=== PATIENT | female | born 1965 | race Caucasian/White ===

== ENCOUNTER → 2018-02-20 08:59 | Outpatient (CLI) | payer OTHER, SELFPAY ==
[2018-01-14 11:44] VITALS: BMI 23.9
[2018-02-14 10:02] VITALS: BMI 23.9
--- NOTE | 2018-02-20 09:02 | BI_ITS ---
MAMMOGRAPHY - BILATERAL DIAGNOSTIC REASON FOR EXAM: Female, 52 years old. 1-2 month history of bilateral breast pain. Left arm edema. PERTINENT HISTORY: Non-contributory. History of prior bilateral breast reduction and left axillary surgery. TECHNIQUE: Digital bilateral breast janel (3D mammographic acquisition) in the CC and MLO projections. 2-D mediolateral oblique (MLO) and craniocaudad (CC) views of both breasts were obtained. CAD: Full Field Digital Mammography with Computer Added Detection was performed. COMPARISON: Comparison is made with prior study dated January 09, 2017 and January 16, 2013. FINDINGS: Breast Composition: There are scattered areas of fibroglandular density. There are no dominant masses or suspicious calcifications. Once again, surgical clips are seen in the axillary region of the left breast. Stable architectural distortion secondary to prior breast reduction surgery. Stable tissue clip marker in the upper deep portion of the left breast. No other significant abnormalities are identified. There has been no significant change since the prior study. BI/DIAG MAMM W/CAD, BILAT IMPRESSION: Stable bilateral diagnostic mammogram. One year follow-up recommended. (A) ASSESSMENT CATEGORY: BIRADS Category 2: Benign. A letter regarding these results will be sent to the patient by the facility within 30 days. Approximately 10% of breast cancers are not detected by mammography. A normal mammogram should not delay biopsy of a clinically suspicious abnormality. Electronically Signed: Eulalio Mathew MD at 12:53 EST Tel [phone], Service support ,
--- NOTE | 2018-02-20 09:02 | US_ITS ---
STUDY: ULTRASOUND BREAST - LEFT REASON FOR EXAM: Female, 52 years old. Pain in the left breast. TECHNIQUE: Axial and longitudinal images of the LEFT breast were performed with a high resolution ultrasound transducer. COMPARISON: Comparison is made with prior mammogram done earlier today. FINDINGS: LEFT Breast: The lateral half of the left breast was examined by ultrasound. There is homogeneous fibroglandular tissue. No solid or cystic mass lesion is seen. US/Breast Limited Unilateral IMPRESSION: Unremarkable sonographic examination of the lateral half of the left breast. ASSESSMENT CATEGORY: BIRADS Category 1: Negative. A letter regarding these results will be sent to the patient by the facility within 30 days. Electronically Signed: Eulalio Mathew MD at 12:59 EST Tel [phone], Service support ,
== END ==
PROVIDERS: Family Provider Internal Medicine; PCP Internal Medicine; Visit Provider Nurse Practitioner Women's Health
DX: N64.4 Mastodynia (principal); Z98.890 Other specified postprocedural states
CPT/HCPCS: 76642; 77062; 77063; 77066; G0279

== ENCOUNTER → 2019-06-29 | Outpatient (CLI) | payer BC, OTHER, SELFPAY ==
[2019-06-22 14:44] VITALS: BMI 23.9
--- NOTE | 2019-06-29 09:34 | US_ITS ---
STUDY: ULTRASOUND BREAST - LEFT REASON FOR EXAM: Female, 53 years old. Pain in the left breast. TECHNIQUE: Axial and longitudinal images of the LEFT breast were performed with a high resolution ultrasound transducer. # OF IMAGES: 65 COMPARISON: Comparison is made with prior mammogram done earlier in the day as well as prior sonogram of the left breast dated February 20, 2018. FINDINGS: LEFT Breast: There is an 8 mm x 9 mm x 6 mm benign-appearing lymph node in the left axilla. US/Breast Limited Unilateral IMPRESSION: 8 mm x 9 mm x 6 mm benign appearing lymph node in the left axilla. ASSESSMENT CATEGORY: BIRADS Category 2: Benign. A letter regarding these results will be sent to the patient by the facility within 30 days. Electronically Signed: Eulalio Mathew, at 12:42 EDT , Service support ,
--- NOTE | 2019-06-29 09:34 | BI_ITS ---
MAMMOGRAPHY - BILATERAL DIAGNOSTIC REASON FOR EXAM: Female, 53 years old. Left breast pain and swelling. Remote left axillary excisional breast biopsy. History of bilateral breast reduction surgery. PERTINENT HISTORY: Mother with breast cancer. TECHNIQUE: Digital bilateral breast janel (3D mammographic acquisition) in the CC and MLO projections. 2-D mediolateral oblique (MLO) and craniocaudad (CC) views of both breasts were obtained. CAD: Full Field Digital Mammography with Computer Added Detection was performed. COMPARISON: Comparison is made with prior examination dated February 20, 2018 and January 09, 2017. FINDINGS: Breast Composition: There are scattered areas of fibroglandular density. There are no dominant masses or suspicious calcifications. Surgical clips are seen in the left axillary region. These are stable. Stable benign-appearing bilateral axillary lymph nodes. No other significant abnormalities are identified. There has been no significant change since the prior study. BI/DIAG MAMM W/CAD, BILAT IMPRESSION: Stable bilateral diagnostic mammogram. With the patient''s history of the left breast pain and swelling, correlation with ultrasound is recommended. ASSESSMENT CATEGORY: BIRADS Category 0: Incomplete. Need additional imaging evaluation. A letter regarding these results will be sent to the patient by the facility within 30 days. Approximately 10% of breast cancers are not detected by mammography. A normal mammogram should not delay biopsy of a clinically suspicious abnormality. Electronically Signed: Eulalio Mathew, at 10:57 EDT , Service support ,
== END | disposition home or self-care (01) ==
LOC: OPBI 09:34
PROVIDERS: PCP Internal Medicine; Referring Provider Nurse Practitioner Women's Health; Visit Provider Nurse Practitioner Women's Health
DX: N64.4 Mastodynia (principal)
CPT/HCPCS: 76642; 77062; 77066; G0279

== ENCOUNTER → 2019-07-17 | Outpatient (CLI) | payer BC, OTHER, SELFPAY ==
[2019-07-14 09:52] VITALS: BMI 23.9
[2019-07-17 13:29] LABS: Anion Gap 8 (5-15); BUN 10 mg/dL (7-18); BUN/Creat Ratio 10.5 RATIO (10-20); Calcium,Total 9.4 mg/dL (8.5-10.1); Chloride 107 mmol/L (98-107); Creatinine, Serum 0.95 mg/dL (0.55-1.02); EST Glomerular Filtration Rate 65 mL/min (>60); Est Glom Filt Rate - Afr Amer 79 mL/min (>60); Glucose 124 mg/dL (74-106); Potassium 4.1 mmol/L (3.5-5.1); Sodium Level 140 mmol/L (136-145); Thyroid Stim Hormone (TSH) 2.77 uIU/mL (0.358-3.74)
== END | disposition home or self-care (01) ==
LOC: BIMLAB 10:31
PROVIDERS: PCP Internal Medicine; Referring Provider Internal Medicine; Visit Provider Internal Medicine
DX: E03.9 Hypothyroidism, unspecified (principal); I34.1 Nonrheumatic mitral (valve) prolapse
CPT/HCPCS: 36415; 80048; 84443

== ENCOUNTER → 2019-09-09 | Outpatient (CLI) | payer BC, OTHER, SELFPAY ==
[2019-08-31 15:30] VITALS: BMI 23.9
--- NOTE | 2019-09-09 11:08 | MRI_ITS ---
STUDY: BILATERAL BREAST MR WITHOUT AND WITH CONTRAST REASON FOR EXAM: Female, 54 years old. left breast pain and swelling -- hx lymphedema x 15 years, prev breast reduction, and benign lesion, lymph nodes of left breast TECHNIQUE: Multi-sequence multi-echo imaging of both breasts was performed with a dedicated breast coil. T1-weighted and T2-weighted images were performed before the administration of contrast. T1-weighted images were also performed after the administration of IV Yes without complications. COMPARISON: Mammogram dated 06/29/2019 and breast ultrasound dated 02/20/2018 and 06/29/2019 FINDINGS: RIGHT BREAST: The breast tissue is scattered fibroglandular densities with mild background enhancement. There are masses in the right breast requiring additional workup with ultrasound. Dedicated ultrasonography of the right breast is recommended. LEFT BREAST: The breast tissue is scattered fibroglandular densities with mild background enhancement. There are several masses in the left breast. A complete left breast ultrasound is recommended for further evaluation. There are enhancing lymph nodes seen bilaterally. There is no abnormality in the visualized regions of the chest or liver. MRI/Breast Bilateral W/O and W IMPRESSION: There are masses in both breasts and lymph nodes seen bilaterally. Dedicated ultrasonography of the entire right and left breast is recommended as well last both axillary regions. CATEGORY: BIRADS Category 0: Incomplete. Need additional imaging evaluation. A letter regarding these results will be sent to the patient by the facility within 30 days. Electronically Signed: Nikia Summers DO at 21:53 EDT Tel , Service support ,
== END | disposition home or self-care (01) ==
LOC: MRI 11:08
PROVIDERS: PCP Internal Medicine; Referring Provider Surgery; Visit Provider Surgery
DX: N64.4 Mastodynia (principal); N63.0 Unspecified lump in unspecified breast
CPT/HCPCS: 77049; A9575; C8908

== ENCOUNTER → 2019-09-28 12:25 | Outpatient (CLI) | payer BC, OTHER, SELFPAY ==
[2019-08-31 15:30] VITALS: BMI 23.9
--- NOTE | 2019-09-28 12:26 | US_ITS ---
STUDY: ULTRASOUND BREAST - RIGHT REASON FOR EXAM: Female, 54 years old. Abnormal MRI examination. TECHNIQUE: Axial and longitudinal images of the RIGHT breast were performed with a high resolution ultrasound transducer. # OF IMAGES: 189 COMPARISON: Comparison is made with prior MRI of the breast dated 09/09/2019. FINDINGS: RIGHT Breast: There is a 9 mm x 6 mm x 2 mm well-defined predominantly cystic nodule with septation at the 12 o''clock position breast at 3 cm from nipple. There is also evidence of small right axillary lymph nodes. IMPRESSION: Small right axillary lymph nodes. Rounded cystic structure with a septation at the 12 o''clock position breast at 3 cm from the nipple measuring 9 mm x 6 mm x 2 mm. A 4 month follow-up examinations recommended. ASSESSMENT CATEGORY: BIRADS Category 3: Probably Benign - Short-Interval Follow-up Suggested. A letter regarding these results will be sent to the patient by the facility within 30 days. Electronically Signed: Eulalio Priyanka, at 13:41 EDT , Service support , STUDY: ULTRASOUND BREAST - LEFT REASON FOR EXAM: Female, 54 years old. A normal MRI examination. TECHNIQUE: Axial and longitudinal images of the LEFT breast were performed with a high resolution ultrasound transducer. # OF IMAGES: 189 COMPARISON: Comparison is made with prior sonogram of the left breast dated 06/29/2019 and 02/20/2018. FINDINGS: LEFT Breast: There is a 5 mm x 5 mm x 2 mm well-defined hypoechoic nodule at the 2 o''clock position of the breast at 1 cm from nipple. There is also evidence of a small left axillary lymph node. US/Breast Complete Bilateral IMPRESSION: 5 mm x 5 mm x 2 mm well-defined hypoechoic nodule at the 2 o''clock position of the breast at 1 cm from nipple. This most likely represents a small fibroadenoma although tissue diagnosis is recommended. ASSESSMENT CATEGORY: BIRADS Category 4: Suspicious - Biopsy Should Be Considered. A letter regarding these results will be sent to the patient by the facility within 30 days. Electronically Signed: Eulalio Mathew, at 13:43 EDT , Service support ,
== END ==
PROVIDERS: PCP Internal Medicine; Referring Provider Surgery; Visit Provider Surgery
DX: R92.8 Other abnormal and inconclusive findings on diagnostic imaging of breast (principal)
CPT/HCPCS: 76641

== ENCOUNTER → 2019-10-19 | Outpatient (CLI) | payer BC, OTHER, SELFPAY ==
--- NOTE | 2019-10-19 09:45 | BRBX_PTH ---
PATIENT: TREVOR LEE LOC: [facility] U#:[id number] AGE/SX: 54/F ROOM: RE10/19/[address]: Dr. Marcellus Jackson MD : 1965 BED: DIS: 10/19/2019 SPEC #: [id number] RECD: 10/19/19 11:15 STATUS: EVERT REVanesa #: [id number] LURDES: 10/19/19 09:[address]: Marcellus Jackson DEPT: SURGICAL PATHOLOGY RECD BY: Bryn Rice ENTERED: 10/19/19 12:32 SP TYPE: BREAST BX OTHR DR: Dr. 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 Negative for malignancy. See comment. SJ:josesito 10/20/19 COMMENT Correlation with clinical, radiologic findings and appropriate follow up are necessary. MICROSCOPIC DESCRIPTION Slides are reviewed. GROSS DESCRIPTION Received in fixative is one container labeled with the patient name and designated left breast. The specimen consists of multiple elongated fragments of wolf-yellow fibroadipose tissue mixed with blood clot that in aggregate measure 2.5 x 1 x 0.2 cm. The entire specimen is submitted in one cassette. / RGEULO:josesito 10/19/19 TC:5 CPT: 58256
[2019-10-19 10:00] VITALS: BMI 23.9
== END | disposition home or self-care (01) ==
PROVIDERS: PCP Internal Medicine; Referring Provider Surgery; Visit Provider Surgery
DX: N62 Hypertrophy of breast (principal)
CPT/HCPCS: 88305

== ENCOUNTER → 2019-10-22 | Outpatient (CLI) | payer BC, OTHER, SELFPAY ==
[2019-10-22 12:10] VITALS: BMI 23.9
[2019-10-28 19:09] LABS: HPV APTIMA, High Risk Negative (Negative)
== END | disposition home or self-care (01) ==
LOC: LABSPEC 16:39
PROVIDERS: PCP Internal Medicine; Visit Provider Obstetrics & Gynecology
DX: Z12.4 Encounter for screening for malignant neoplasm of cervix (principal)
CPT/HCPCS: 87624; 88175; G0145

== ENCOUNTER 2019-12-04 10:04 | Day surgery (SDC) | payer BC, OTHER, SELFPAY ==
[2019-10-27 14:01] VITALS: BMI 23.9
--- NOTE | 2019-11-27 10:08 | RAD_ITS ---
STUDY: X-RAY CHEST REASON FOR EXAM: Female, 54 years old. PRE OP, PREVIOUS HISTORY OF FLUID IN LUNGS 3 WEEKS TECHNIQUE: PA and lateral views of the chest. COMPARISON: September 06, 2010 FINDINGS: There is postoperative change of the left breast and axillary region. The lungs are clear and expanded. There is no demonstrated pleural abnormality. Normal size heart. Normal mediastinum and jeff. Normal visualized pulmonary arteries. Normal visualized aortic arch and descending thoracic aorta. Normal visualized thoracic spine. Normal visualized ribs, clavicles, and shoulders. There is no demonstrated abnormality of the visualized soft tissue structures of the upper abdomen. RAD/Chest PA and Lateral IMPRESSION: No acute cardiopulmonary disease. Electronically Signed: Reuben Moffett MD at 10:57 EDT , Service support ,
--- NOTE | 2019-12-04 | BRBX_PTH ---
PATIENT: TREVOR [place]EE [place] [facility] [place][id number] AGE/SX: 54/F ROOM: RE12/04/[address]: Dr. Marcellus Jackson MD : 1965 BED: DIS: 12/04/2019 SPEC #: [id number] RECD: 12/04/19 12:06 STATUS: EVERT MAURO #: [id number] LURDES: 12/04/19 00:[address]: Marcellus Jackson DEPT: SURGICAL PATHOLOGY RECD BY: Ariana Mathews ENTERED: 12/04/19 12:32 SP TYPE: BREAST BX OTHR DR: MD Dr. Stan Nova MD Tissues: Left breast, NOS Procedures: Surgery Specimen Level V HEADER OPERATION: Left breast stereotactic wire localization lumpectomy PRE-OP DIAGNOSIS: Intraductal hyperplasia of left breast TISSUE SUBMITTED: Left breast tissue MICROSCOPIC DIAGNOSIS Left breast, lumpectomy: Intraductal hyperplasia without atypia. Margins of excision with no evidence of atypia. Biopsy cavity with associated reparative and reactive change. No evidence of malignancy. AM:josesito 12/09/19 COMMENT Reference is made to the patient's left breast mass, core biopsy ([id number]) in which florid intraductal hyperplasia without atypia was identified. Case has been reviewed in consultation with Dr. Tello who concurs with the above diagnosis. IDC:SJ MICROSCOPIC DESCRIPTION Slides are reviewed. GROSS DESCRIPTION Received in fixative is one container labeled with the patient's name and designated left breast tissue, short suture - superior, long suture - lateral. The specimen consists of a piece of fibroadipose tissue with needle localization measuring 5 x 4.5 x 2.5 cm. The specimen is oriented by sutures, short - superior, long - lateral. The specimen is inked as follows: anterior - yellow, posterior - black, superior - blue, inferior - green, medial - red and lateral - orange. Sections reveal most predominantly adipose cut surfaces with scant fibrous areas. No obvious mass lesion is identified. The entire specimen is submitted from superior to inferior margin in 16 cassettes. The specimen will be submitted after additional fixation. / REGULO:josesito 12/07/19 TC:5 CPT: 83533
--- NOTE | 2019-12-04 10:19 | HP.PCM_ITS ---
Problem List (1) Intraductal hyperplasia without atypia of left breast Status: Acute History of Present Illness Date of Admission: 12/04/19 The patient is a 54 year old F with a left breast mass. The patient had biopsy which showed a florid hyperplasia of the left breast. Patient has had no issues since biopsy. Past Medical History Past Medical History (Chronic Problems): Chronic Problems (Last Reviewed 10/27/19 @ 14:00 by Codi Grayson) Lymphedema (Chronic) Asthma (Chronic) Mitral valve prolapse (Chronic) Migraines (Chronic) Hypothyroidism (Chronic) Medical History: Medical History (Last Reviewed 10/27/19 @ 14:00 by Codi Grayson) Anemia D64.9 Anxiety F41.9 Arthritis M19.90 Asthma J45.909 Back pain M54.9 Breast pain N64.4 Diarrhea R19.7 Fatigue R53.83 Hay fever J30.1 History of pneumonia Z87.01 Hypothyroidism E03.9 Knee pain M25.569 Lung disease J98.4 Migraines G43.909 Mitral valve prolapse I34.1 Neuropathy G62.9 SOB (shortness of breath) R06.02 Seasonal allergies J30.2 Shoulder pain M25.519 Stomach ulcer K25.9 Thyroid disease E07.9 Vitamin deficiency E56.9 Weight loss R63.4 Chronic bronchitis J42 Allergies tuberculin,PPD,multi-puncture Allergy (Severe, Verified 12/04/19 10:18) swelling Sulfa (Sulfonamide Antibiotics) Allergy (Verified 12/04/19 10:18) Rash nifedipine [From Procardia] Adverse Reaction (Verified 12/04/19 10:18) PT UNSURE OF REACTION Home Medications: Ambulatory Orders Medication Instructions Recorded albuterol sulfate 90 mcg/actuation 1 puff INHALATION Q6H PRN 04/12/17 aerosol inhaler lamotrigine 100 mg tablet 125 mg PO QHS 12/17/18 montelukast 10 mg tablet 10 mg PO QHS 90 Days #90 tab 07/03/19 amlodipine 5 mg tablet 5 mg PO QHS tab 07/14/19 ALPRAZolam [Xanax] 0.5 mg PO QHS 11/24/19 RX: Levothyroxine Sodium 25 mcg PO QHS 11/24/19 [Synthroid] Sumatriptan Succinate [Imitrex] 50 mg PO .X1 PRN 11/24/19 Hydrochlorothiazide [Hctz] 12.5 mg PO DAILY 12/04/19 Surgical History: Surgical History (Last Reviewed 10/27/19 @ 14:00 by Codi Grayson) H/O removal of cyst Z98.890 H/O tubal ligation Z98.51 History of cholecystectomy Z98.890, Z90.49 History of lumpectomy of left breast Z98.890 History of sinus surgery Z98.890 History of tonsillectomy Z90.89 Hx of breast reduction, elective Z98.890 Hx of colonoscopy Z98.890 2014? Smoking Status: Never smoker Tobacco Use: Non-smoker Review of Systems Constitutional: Denies: Anorexia, Chills, Fever Cardiovascular: Denies: Chest Pain Respiratory: Denies: Cough Gastrointestinal: Denies: Abdominal Pain, Nausea, Melena Genitourinary: Denies: Dysuria Skin: Denies: Dryness, Jaundice Neurological: Denies: Balance problems Hematologic/ Lymphatic: Denies: Anemia VTE Information - Inpt Only VTE Present on Admission: No VTE Mechan Device Prophylaxis: SCD's - Physical Exam Vitals/I&O's: Body Mass Index (BMI) 23.9 General: Alert, Oriented x3 Neck: No JVD Lungs: Normal air movement Cardiovascular: Regular rate, Regular Rhythm Abdomen: Soft, Non Tender, Non-Distended Current Medications Cefazolin Sodium 2 gm/ Sodium (Chloride) 110 mls @ 150 mls/hr IV PREOP ONE Stop: 12/04/19 12:13 Assessment/Plan All Active Problems (Last Reviewed 10/27/19 @ 14:00 by Codi Grayson) Intraductal hyperplasia without atypia of left breast (Acute) 54-year-old female with hyperplasia of left breast 1. Given the fact that the patient florid ductal hyperplasia of the left breast and I did not remove the entire mass I am concerned for possible atypia or invasive carcinoma nearby. I recommended needle localized excision of this area and the patient agreed. I discussed the risks of bleeding, infection, need for further surgery. The patient understands all the risks and is well to proceed. Marcellus Jackson MD Pager: [facility] [address] [place] [address], [address] [place] [phone] Office:
[2019-12-04 10:21] VITALS: BP 103/72; PULSE 84; RESP 16; TEMP 36.4; O2SAT 99; BMI 26.9
[2019-12-04] MEDS: Lactated Ringers 1,000 ML 100 ML IV (10:28)
--- NOTE | 2019-12-04 10:30 | BI_ITS ---
SURGICAL BREAST SPECIMEN RADIOGRAPH CLINICAL: Document presence of tissue clip marker in biopsy specimen. FINDINGS: Specimen shows presence of tissue clip marker. Electronically Signed: Eulalio Mathew, at 14:57 EDT , Service support , BI/Breast Biopsy Specimen
[2019-12-04] MEDS: Cefazolin 2 GM in 0.9% Normal Saline 100 ML IV (11:39)
[2019-12-04] MEDS: Bupiv/Epi 0.25% 30 ML Vial (11:39)
[2019-12-04 12:20] VITALS: BP 103/60; BP 103/72; PULSE 80; RESP 16; TEMP 36.3; O2SAT 100
--- NOTE | 2019-12-04 12:23 | PCM.OPRPT ---
Problem List (1) Intraductal hyperplasia without atypia of left breast Status: Acute Report of Operation Date of Procedure: 12/04/19 Pre-Operative Diagnosis: Left breast mass Post-Operative Diagnosis: Same Surgery/Procedure Performed:: 1. Stereotactic wire localization of left breast mass. 2. Left partial mastectomy Specimen's removed: Left breast mass Description of Procedure: Patient was placed in the stereotactic table and the left breast was compressed and mammographic images were obtained. After stereotactic images localize the clip and it was targeted then the skin was prepped in the normal sterile fashion. The skin was anesthetized and then the needle was placed into the breast and the wire was deployed. Images were obtained and the patient was sent for mammogram imaging The patient was then brought to the operating room and general anesthesia was induced. The left breast was prepped and draped in usual sterile fashion. A curvilinear incision was anesthetized and then a scalpel was used to make incision lateral to the wire. The wire was brought into the incision. Flaps were raised bilaterally using electrocautery. The mass was grasped and dissected free using electrocautery. It was sent for mammogram and I did include the clip. The cavity was irrigated and suctioned dry and hemostasis was obtained using electrocautery. The skin was closed with interrupted 3-0 Vicryl sutures as well as a running 4-0 Monocryl suture and glue was applied. Patient was brought to PACU in stable condition and tolerated the procedure well. - Admit VTE Documentation VTE Mechan Device Prophylaxis: SCD's
--- NOTE | 2019-12-04 12:29 | PCM.DC.BS ---
Discharge Diet: No Restrictions Discharge Activity: May Not Drive - for 2-3 days or while taking narcotic pain meds. May shower in (days): 1 Lifting Restrictions: 10 pounds for 1 week. Call your doctor if your incision/area has: Continuous Slow Oozing, Sudden Increased Bleeding Call your doctor if you observe: Fever of 101 or Higher Suture Line Care: Avoid Pulling/Pushing, Avoid Pinching/Bending Cleanse incision/area with: Soap & Water Allergies/Adverse Reactions: Allergies tuberculin,PPD,multi-puncture Allergy (Severe, Verified 12/04/19 10:18) swelling Sulfa (Sulfonamide Antibiotics) Allergy (Verified 12/04/19 10:18) Rash nifedipine [From Procardia] Adverse Reaction (Verified 12/04/19 10:18) PT UNSURE OF REACTION Medications to take at Discharge albuterol sulfate 90 mcg/actuation aerosol inhaler 1 puff INHALATION Q6H PRN 04/12/17 lamotrigine 100 mg tablet 125 mg PO QHS 12/17/18 montelukast 10 mg tablet 10 mg PO QHS 90 Days #90 tab 07/03/19 amlodipine 5 mg tablet 5 mg PO QHS tab 07/14/19 ALPRAZolam [Xanax] 0.5 mg PO QHS 11/24/19 Levothyroxine Sodium [Synthroid] 25 mcg PO QHS 11/24/19 Sumatriptan Succinate [Imitrex] 50 mg PO .X1 PRN 11/24/19 Hydrochlorothiazide [Hctz] 12.5 mg PO DAILY 12/04/19 Oxycodone HCl/Acetaminophen [Percocet 5-325 mg Tablet] 1 - 2 tab PO Q6H PRN PRN 5 Days #20 tablet 12/04/19 The following prescriptions were given: Oxycodone HCl/Acetaminophen [Percocet 5-325 mg Tablet] 1 - 2 tab PO Q6H PRN PRN 5 Days #20 tablet PRN Reason: Pain Score 4-10/10 Transmission Status: Sent to [facility] Please Follow Up With: Marcellus Jackson MD When: Please call to schedule 2 week follow up appointment. [phone]
[2019-12-04 12:30] VITALS: BP 103/72; BP 96/62; PULSE 71; RESP 16; O2SAT 97
[2019-12-04 12:45] VITALS: BP 103/72; BP 95/61; PULSE 65; RESP 16; O2SAT 93
[2019-12-04 12:58] VITALS: BP 103/59; BP 103/72; PULSE 61; RESP 16; TEMP 36.1; O2SAT 95
[2019-12-04 13:57] VITALS: BP 103/72; BP 147/44; PULSE 70; RESP 16; TEMP 36.5; O2SAT 94
== END 2019-12-04 14:08 | disposition home health service (06) ==
LOC: SDC 10:05 → AC 10:05
PROVIDERS: Anesthesiology; PCP Internal Medicine; Referring Provider Surgery; Visit Provider Surgery
PROC: (CPT 19301; principal; 2019-12-04 11:15)
DX: N60.92 Unspecified benign mammary dysplasia of left breast (principal); E03.9 Hypothyroidism, unspecified; J45.909 Unspecified asthma, uncomplicated; F41.9 Anxiety disorder, unspecified; F32.9 Major depressive disorder, single episode, unspecified; Z79.51 Long term (current) use of inhaled steroids; Z20.828 Contact with and (suspected) exposure to other viral communicable diseases; Z79.899 Other long term (current) drug therapy
CPT/HCPCS: 00400; 19301; 19281; 71046; 76098; 87635; 88305; 88307; C9803; J7120; A4216; J2405; Q9968; U0003

== ENCOUNTER → 2020-05-13 08:49 | Outpatient (CLI) | payer BC, OTHER, SELFPAY ==
[2020-05-09 14:28] VITALS: BMI 26.2
--- NOTE | 2020-05-13 08:58 | US_ITS ---
STUDY: ULTRASOUND BREAST - LEFT REASON FOR EXAM: Female, 54 years old. Pain in the left breast. TECHNIQUE: Axial and longitudinal images of the LEFT breast were performed with a high resolution ultrasound transducer. # OF IMAGES: 26 COMPARISON: Comparison is made with prior mammogram done earlier in the day as well as prior left breast sonogram dated 09/28/2019. FINDINGS: LEFT Breast: The left breast was examined by ultrasound. No sonographic abnormality is seen. US/Breast Limited Unilateral IMPRESSION: No sonographic abnormality is seen. ASSESSMENT CATEGORY: BIRADS Category 1: Negative. A letter regarding these results will be sent to the patient by the facility within 30 days. Electronically Signed: Eulalio Mathew MD at 13:20 EDT , Service support ,
--- NOTE | 2020-05-13 08:58 | BI_ITS ---
MAMMOGRAPHY - BILATERAL DIAGNOSTIC REASON FOR EXAM: Female, 54 years old. Retroareolar left breast pain following prior excisional breast biopsy. PERTINENT HISTORY: Prior left lumpectomy and bilateral breast reduction surgery. Mother with breast cancer. TECHNIQUE: Digital bilateral breast janel (3D mammographic acquisition) in the CC and MLO projections. 2-D mediolateral oblique (MLO) and craniocaudad (CC) views of both breasts were obtained. CAD: Full Field Digital Mammography with Computer Added Detection was performed. COMPARISON: Comparison is made with prior study dated 06/29/2019 and 12/04/2019. FINDINGS: Breast Composition: There are scattered areas of fibroglandular density. There are no dominant masses or suspicious calcifications. Since prior examination, the patient underwent an excisional breast biopsy in the retroareolar region of the left breast with resultant postoperative scarring and skin thickening. Surgical clips are seen in the left axillary region. Stable benign-appearing bilateral axillary lymph nodes. No other significant abnormalities are identified. BI/DIAG MAMM W/CAD, BILAT IMPRESSION: Stable bilateral diagnostic mammogram. One year follow-up recommended. (A) ASSESSMENT CATEGORY: BIRADS Category 0: Incomplete. Need additional imaging evaluation. A letter regarding these results will be sent to the patient by the facility within 30 days. Approximately 10% of breast cancers are not detected by mammography. A normal mammogram should not delay biopsy of a clinically suspicious abnormality. Electronically Signed: Eulalio Mathew MD at 11:17 EDT , Service support ,
== END ==
PROVIDERS: PCP Internal Medicine; Referring Provider Obstetrics & Gynecology; Visit Provider Obstetrics & Gynecology
DX: N64.4 Mastodynia (principal)
CPT/HCPCS: 76642; 77062; 77063; 77066; G0279

== ENCOUNTER → 2020-06-21 11:02 | Outpatient (CLI) | payer BC, OTHER, SELFPAY ==
[2020-05-09 14:28] VITALS: BMI 26.2
--- NOTE | 2020-06-21 11:05 | US_ITS ---
STUDY: ULTRASOUND BREAST - RIGHT REASON FOR EXAM: Female, 54 years old. Follow-up for right breast nodule. TECHNIQUE: Axial and longitudinal images of the RIGHT breast were performed with a high resolution ultrasound transducer. # OF IMAGES: 10 COMPARISON: Comparison is made with prior sonogram dated 09/28/2019. FINDINGS: RIGHT Breast: Stable 8 mm x 8 mm x 5 mm complex cystic nodule with septation at the 12 o''clock position of the breast at 3 cm from the nipple. US/Breast Limited Unilateral IMPRESSION: Stable examination. ASSESSMENT CATEGORY: BIRADS Category 2: Benign. A letter regarding these results will be sent to the patient by the facility within 30 days. Electronically Signed: Eulalio Mathew MD at 14:58 EDT , Service support ,
== END ==
PROVIDERS: PCP Internal Medicine; Referring Provider Surgery; Visit Provider Surgery
DX: N63.10 Unspecified lump in the right breast, unspecified quadrant (principal)
CPT/HCPCS: 76642

== ENCOUNTER → 2020-07-19 09:23 | Outpatient (CLI) | payer BC, OTHER, SELFPAY ==
[2020-07-19 09:07] VITALS: BMI 26.2
[2020-07-19 12:26] LABS: Absolute Lymphocyte Count 1.76 X10^3/uL (0.83-4.51); Absolute Neutrophil Count 3.3 X10^3/uL (2.0-7.7); Basophil# 0.03 X10^3/uL; Basophil% 0.5 % (0-1); Eosinophils% 1.8 % (0-5); Hematocrit 42.2 % (37-47); Hemoglobin 13.3 g/dL (12.0-15.0); Lymphocyte # 1.76 X10^3/ul (0.83-4.51); Lymphocyte % 30.9 % (19-41); Mean Corp Hgb Conc 31.5 g/dL (32-36); Mean Corpuscular Hgb 29.6 pg (27.0-32.0); Mean Platelet Vol. 10.7 fl (6.2-12.0); Monocyte# 0.44 X10^3/uL; Monocyte% 7.7 % (0-10); NRBC Flagged by Analyzer 0 % (0-5); Neutrophil # 3.34 X10^3/uL (2.7-7.7); Neutrophil % 58.7 % (47-70); Platelet Count 311 K/mm3 (150-450); RBC Distribution Width CV 12.9 % (11.6-14.6); RBC Distribution Width SD 44.6 fl (35.1-43.9); Red Blood Count 4.49 M/mm3 (4.2-5.4); White Blood Count 5.7 K/mm3 (4.4-11.0)
[2020-07-19 13:03] LABS: AST(SGOT) 21 U/L (15-37); Alanine Aminotransfer ALT/SGPT 29 U/L (13-56); Albumin, Serum 3.7 g/dL (3.2-5.0); Alkaline Phosphatase 107 U/L (45-117); Anion Gap 5 (5-15); BUN 13 mg/dL (7-18); BUN/Creat Ratio 14.4 RATIO (10-20); Calcium,Total 9.6 mg/dL (8.5-10.1); Chloride 106 mmol/L (98-107); Cholesterol 190 mg/dL (200); EST Glomerular Filtration Rate 69 mL/min (>60); Est Glom Filt Rate - Afr Amer 84 mL/min (>60); Globulin 3.7 g/dL (2.2-4.2); Glucose 102 mg/dL (74-106); High Density Lipoprotein 49 mg/dL; Potassium 4.4 mmol/L (3.5-5.1); Protein, Total 7.4 g/dL (6.4-8.2); Sodium Level 141 mmol/L (136-145); T4 Free Direct 1.04 ng/dL (0.76-1.46); Thyroid Stim Hormone (TSH) 5.29 uIU/mL (0.358-3.74); Triglycerides 82 mg/dL; Very Low Density Lipoprotein 16 mg/dL (5-40)
== END ==
PROVIDERS: Physician Assistant; PCP Internal Medicine; Visit Provider Internal Medicine
DX: E03.9 Hypothyroidism, unspecified (principal); J45.909 Unspecified asthma, uncomplicated
CPT/HCPCS: 36415; 80053; 80061; 84439; 84443; 85025

== ENCOUNTER → 2021-01-19 | Outpatient (CLI) | payer OTHER, SELFPAY | END | disposition home or self-care (01) | PROVIDERS: PCP Internal Medicine; Visit Provider Physician Assistant | DX: Z11.52 Encounter for screening for COVID-19 (principal) | CPT/HCPCS: 87635; U0005; U0003 ==

== ENCOUNTER → 2021-01-24 | Outpatient (CLI) | payer OTHER, SELFPAY | END | disposition home or self-care (01) | LOC: LABSPEC 09:05 | PROVIDERS: PCP Internal Medicine; Referring Provider Physician Assistant Surgical; Visit Provider Physician Assistant Surgical | DX: R51.9 Headache, unspecified (principal) | CPT/HCPCS: 87635; U0005; U0003 ==

== ENCOUNTER → 2021-07-26 | Outpatient (CLI) | payer OTHER, SELFPAY ==
[2021-07-26 15:19] LABS: Hemoglobin 13.6 g/dL (12.0-15.0); Mean Corp Hgb Conc 31.6 g/dL (32-36); Mean Corpuscular Hgb 29.4 pg (27.0-32.0); Mean Corpuscular Volume 93.1 fL (81-99); Platelet Count 283 K/mm3 (150-450); RBC Distribution Width CV 13.1 % (11.6-14.6); RBC Distribution Width SD 44.3 fl (35.1-43.9); Red Blood Count 4.62 M/mm3 (4.2-5.4); White Blood Count 8.6 K/mm3 (4.4-11.0)
== END | disposition home or self-care (01) ==
LOC: MTLAB 13:05
PROVIDERS: PCP Student in an Organized Health Care Education/Training Program; Referring Provider Internal Medicine Pulmonary Disease; Visit Provider Internal Medicine Pulmonary Disease
DX: U07.1 COVID-19 (principal); J45.30 Mild persistent asthma, uncomplicated
CPT/HCPCS: 36415; 85027

== ENCOUNTER → 2021-11-09 | Outpatient (CLI) | payer OTHER, SELFPAY | END | disposition home or self-care (01) | PROVIDERS: PCP Student in an Organized Health Care Education/Training Program; Referring Provider Nurse Practitioner Women's Health; Visit Provider Nurse Practitioner Women's Health | DX: R30.0 Dysuria (principal) | CPT/HCPCS: 87077; 87086; 87088 ==

== ENCOUNTER → 2021-11-28 | Outpatient (CLI) | payer OTHER, SELFPAY | END | disposition home or self-care (01) | LOC: LABSPEC 11:59 | PROVIDERS: PCP Student in an Organized Health Care Education/Training Program; Visit Provider Nurse Practitioner Women's Health | DX: N39.0 Urinary tract infection, site not specified (principal) | CPT/HCPCS: 87086; 87088 ==

== ENCOUNTER → 2021-12-14 | Outpatient (CLI) | payer OTHER, SELFPAY ==
--- NOTE | 2021-12-14 12:49 | BI_ITS ---
MAMMOGRAPHY - BILATERAL SCREENING REASON FOR EXAM: Female, 56 years old. Routine annual screening examination. PERTINENT HISTORY: Mother with breast cancer. Prior left excisional breast biopsies. TECHNIQUE: Digital bilateral breast juan (3D mammographic acquisition) in the CC and MLO projections. 2-D mediolateral oblique (MLO) and craniocaudad (CC) views of both breasts were obtained. CAD: Full Field Digital Mammography with Computer Added Detection was performed. COMPARISON: Comparison is made with prior study 05/13/2020 and 12/04/2019. FINDINGS: Breast Composition: There are scattered areas of fibroglandular density. There are no dominant masses or suspicious calcifications. Surgical clips are seen in the left axilla. The patient is status post excisional breast biopsy in the retroareolar region of the left breast with resultant postoperative scarring. Stable small benign-appearing bilateral axillary lymph nodes. No other significant abnormalities are identified. There has been no significant change since the prior study. BI/SCRN MAMM (CAD)W/JUAN BILAT IMPRESSION: Stable bilateral screening mammogram. Yearly follow-up mammogram recommended. (A) ASSESSMENT CATEGORY: BIRADS Category 2: Benign. A letter regarding these results will be sent to the patient by the facility within 30 days. Approximately 10% of breast cancers are not detected by mammography. A normal mammogram should not delay biopsy of a clinically suspicious abnormality. [id number] Electronically Signed: Eulalio Mathew MD at 14:25 EDT ,
== END | disposition home or self-care (01) ==
PROVIDERS: PCP Student in an Organized Health Care Education/Training Program; Visit Provider Nurse Practitioner Women's Health
DX: Z12.31 Encounter for screening mammogram for malignant neoplasm of breast (principal); Z80.3 Family history of malignant neoplasm of breast; R30.0 Dysuria
CPT/HCPCS: 77063; 77067; 87086

== ENCOUNTER → 2021-12-25 | Outpatient (CLI) | payer OTHER, SELFPAY ==
--- NOTE | 2021-12-25 12:34 | EKG12_ITS ---
Test Reason : PRE OP Blood Pressure : / mmHG Vent. Rate : 079 BPM Atrial Rate : 079 BPM P-R Int : 144 ms QRS Dur : 070 ms QT Int : 366 ms P-R-T Axes : 067 071 072 degrees QTc Int : 419 ms Normal sinus rhythm Normal ECG Confirmed by KIMBER VALDEZ, KRISTYN ([id number]), clinical editor WESTLEY DOWLING ([id number]) on 12/26/2021 8:50:54 AM Referred By: Ruiz Elmore Confirmed By:KRISTYN QUIROGA MD
[2021-12-25 13:22] LABS: Hematocrit 42.2 % (37-47); Hemoglobin 13.9 g/dL (12.0-15.0); Mean Corp Hgb Conc 32.9 g/dL (32-36); Mean Corpuscular Hgb 30.4 pg (27.0-32.0); Mean Corpuscular Volume 92.3 fL (81-99); Mean Platelet Vol. 9.9 fl (6.2-12.0); Platelet Count 310 K/mm3 (150-450); RBC Distribution Width CV 12.6 % (11.6-14.6); RBC Distribution Width SD 42.8 fl (35.1-43.9); Red Blood Count 4.57 M/mm3 (4.2-5.4); White Blood Count 6.4 K/mm3 (4.4-11.0)
[2021-12-25 14:07] LABS: Anion Gap 3 (5-15); BUN 10 mg/dL (7-18); BUN/Creat Ratio 13.5 RATIO (10-20); Calcium,Total 9.5 mg/dL (8.5-10.1); Chloride 107 mmol/L (98-107); Creatinine, Serum 0.74 mg/dL (0.55-1.02); EST Glomerular Filtration Rate 86 mL/min (>60); Est Glom Filt Rate - Afr Amer 104 mL/min (>60); Glucose 103 mg/dL (74-106); Potassium 3.9 mmol/L (3.5-5.1); Sodium Level 141 mmol/L (136-145)
== END | disposition home or self-care (01) ==
LOC: PSN 12:30
PROVIDERS: PCP Student in an Organized Health Care Education/Training Program; Referring Provider Otolaryngology; Visit Provider Otolaryngology
DX: Z01.818 Encounter for other preprocedural examination (principal)
CPT/HCPCS: 36415; 80048; 85027; 93005

== ENCOUNTER → 2022-05-01 | Outpatient (CLI) | payer OTHER, SELFPAY ==
--- NOTE | 2022-05-01 11:43 | RAD_ITS ---
STUDY: X-RAY CHEST REASON FOR EXAM: Female, 56 years old. Difficulty breathing TECHNIQUE: PA and lateral views of the chest. COMPARISON: 11/27/2019 FINDINGS: The lungs are clear and expanded. There is no demonstrated pleural abnormality. Normal size heart. Normal mediastinum and jeff. Normal visualized pulmonary arteries. Normal visualized aortic arch and descending thoracic aorta. Normal visualized thoracic spine. Normal visualized ribs, clavicles, and shoulders. There is no demonstrated abnormality of the visualized soft tissue structures of the upper abdomen. RAD/Chest PA and Lateral IMPRESSION: Normal x-ray examination of the chest. Electronically Signed: Jed Phipps MD at 11:55 EDT ,
== END | disposition home or self-care (01) ==
LOC: MTRAD 11:37
PROVIDERS: PCP Student in an Organized Health Care Education/Training Program; Referring Provider Internal Medicine Pulmonary Disease; Visit Provider Internal Medicine Pulmonary Disease
DX: J45.30 Mild persistent asthma, uncomplicated (principal)
CPT/HCPCS: 71046

== ENCOUNTER → 2022-06-22 | Outpatient (CLI) | payer OTHER, SELFPAY ==
--- NOTE | 2022-06-22 09:06 | US_ITS ---
STUDY: ULTRASOUND BREAST - LEFT REASON FOR EXAM: Female, 56 years old. Left breast pain. TECHNIQUE: Axial and longitudinal images of the LEFT breast were performed with a high resolution ultrasound transducer. # OF IMAGES: 47 COMPARISON: Comparison is made with prior mammogram done earlier today as well as prior ultrasound of the left breast dated May 13, 2020. FINDINGS: LEFT Breast: The upper outer quadrant of the left breast was examined with ultrasound. There is evidence of a 1.4 cm x 0.8 cm x 0.3 cm benign appearing lymph node. US/Breast Limited Unilateral IMPRESSION: 1.4 cm x 0.8 cm x 0.3 cm benign appearing left axillary lymph node. ASSESSMENT CATEGORY: BIRADS Category 2: Benign. A letter regarding these results will be sent to the patient by the facility within 30 days. Electronically Signed: Eulalio Mathew MD at 15:20 EDT ,
--- NOTE | 2022-06-22 09:06 | BI_ITS ---
MAMMOGRAPHY - BILATERAL DIAGNOSTIC REASON FOR EXAM: Female, 56 years old. Left breast pain and lymphedema. PERTINENT HISTORY: History of prior excisional breast biopsy on the left side. Status post bilateral reduction surgery. TECHNIQUE: Digital bilateral breast janel (3D mammographic acquisition) in the CC and MLO projections. 2-D mediolateral oblique (MLO) and craniocaudad (CC) views of both breasts were obtained. CAD: Full Field Digital Mammography with Computer Added Detection was performed. COMPARISON: Comparison is made with prior study December 14, 2021 and May 13, 2020. FINDINGS: Breast Composition: There are scattered areas of fibroglandular density. There are no dominant masses or suspicious calcifications. Once again, surgical clips are seen in the left axilla. Stable benign-appearing bilateral axillary lymph nodes. A tissue clip marker is also seen in the deep upper lateral portion of the left breast. No other significant abnormalities are identified. There has been no significant change since the prior study. BI/DIAG MAMM W/CAD, BILAT IMPRESSION: Stable bilateral diagnostic mammogram. With the patient''s history of the left breast pain, ultrasound correlation is recommended. ASSESSMENT CATEGORY: BIRADS Category 0: Incomplete. Need additional imaging evaluation. A letter regarding these results will be sent to the patient by the facility within 30 days. Approximately 10% of breast cancers are not detected by mammography. A normal mammogram should not delay biopsy of a clinically suspicious abnormality. Electronically Signed: Eulalio Mathew MD at 10:18 EDT ,
== END | disposition home or self-care (01) ==
LOC: OPBI 09:05
PROVIDERS: PCP Student in an Organized Health Care Education/Training Program; Referring Provider Advanced Practice Midwife; Visit Provider Advanced Practice Midwife
DX: N64.4 Mastodynia (principal)
CPT/HCPCS: 76642; 77062; 77066; G0279

== ENCOUNTER → 2022-12-31 | Outpatient (CLI) | payer OTHER, SELFPAY ==
[2022-12-31 10:28] LABS: Absolute Lymphocyte Count 1.51 X10^3/uL (0.83-4.51); Absolute Neutrophil Count 4.5 X10^3/uL (2.0-7.7); Basophil# 0.03 X10^3/uL; Basophil% 0.5 % (0-1); Eosinophil# 0.05 X10^3/uL; Eosinophils% 0.8 % (0-5); Hematocrit 42.2 % (37-47); Hemoglobin 13.2 g/dL (12.0-15.0); Lymphocyte # 1.51 X10^3/ul (0.83-4.51); Lymphocyte % 23.4 % (19-41); Mean Corp Hgb Conc 31.3 g/dL (32-36); Mean Corpuscular Hgb 29.7 pg (27.0-32.0); Mean Corpuscular Volume 94.8 fL (81-99); Mean Platelet Vol. 10.6 fl (6.2-12.0); Monocyte% 6.2 % (0-10); NRBC Flagged by Analyzer 0 % (0-5); Neutrophil # 4.45 X10^3/uL (2.7-7.7); Neutrophil % 68.9 % (47-70); Platelet Count 309 K/mm3 (150-450); RBC Distribution Width CV 13.2 % (11.6-14.6); RBC Distribution Width SD 45.6 fl (35.1-43.9); Red Blood Count 4.45 M/mm3 (4.2-5.4); White Blood Count 6.5 K/mm3 (4.4-11.0)
[2022-12-31 11:13] LABS: Vitamin B12 643 pg/mL (211-911); Vitamin D,25 Hydroxy 51.9 ng/mL
[2022-12-31 11:35] LABS: Ferritin 94 ng/mL (8-252); Iron 93 ug/dL (50-170); Iron Binding Capacity,Total 318 ug/dL (250-450); PERCENT IRON SATURATION 29.2 % (15.0-55.0); T4 Free Direct 1.07 ng/dL (0.76-1.46); Thyroid Stim Hormone (TSH) 4.21 uIU/mL (0.358-3.74)
[2022-12-31 16:41] LABS: Prealbumin 19.8 mg/dL (20.0-40.0); T4 Total, Thyroxin 11.5 ug/dL (4.8-13.9)
[2023-01-02 12:09] LABS: Anti-Nuclear Antibody Test Negative (.); Vitamin D 1,25-Dihydroxy 43.7 pg/mL (24.8-81.5)
[2023-01-09 06:08] LABS: DHEA Sulfate 26.9 ug/dL (29.4-220.5); Testosterone, % Free 1.36 % (0.50-2.80); Testosterone, Free < 0.04 ng/dL (0.10-0.85); Testosterone, Total < 3 ng/dL (4-50); Zinc, Plasma or Serum 88 ug/dL (44-115)
== END | disposition home or self-care (01) ==
LOC: MTLAB 09:14
PROVIDERS: PCP Student in an Organized Health Care Education/Training Program; Referring Provider Dermatology; Visit Provider Dermatology
DX: L65.0 Telogen effluvium (principal); L82.0 Inflamed seborrheic keratosis; L29.8 Other pruritus
CPT/HCPCS: 36415; 82306; 82607; 82627; 82652; 82728; 82746; 83540; 83550; 84134; 84402; 84403; 84436; 84439; 84443; 84630; 85025; 86038; 82626

== ENCOUNTER → 2023-05-24 | Outpatient (CLI) | payer OTHER, SELFPAY | END | disposition home or self-care (01) | LOC: LABSPEC 12:41 | PROVIDERS: PCP Student in an Organized Health Care Education/Training Program; Referring Provider Registered Nurse; Visit Provider Registered Nurse | DX: R30.0 Dysuria (principal); N89.8 Other specified noninflammatory disorders of vagina | CPT/HCPCS: 87070; 87077; 87086; 87088; 87205 ==

== ENCOUNTER → 2023-06-20 | Outpatient (CLI) | payer OTHER, SELFPAY | END | disposition home or self-care (01) | PROVIDERS: PCP Student in an Organized Health Care Education/Training Program; Visit Provider Nurse Practitioner Family | DX: N89.8 Other specified noninflammatory disorders of vagina (principal); R30.0 Dysuria | CPT/HCPCS: 87070; 87077; 87086; 87088; 87205 ==

== ENCOUNTER 2024-04-12 15:41 | Emergency (ER) | payer OTHER, SELFPAY ==
[2024-04-12 15:43] VITALS: BP 119/59; PULSE 132; RESP 18; TEMP 38; O2SAT 94; BMI 23.1
--- NOTE | 2024-04-12 16:08 | EX.ED.VIS.UR ---
HPI HPI - URI History of Present Illness Chief Complaint: Cold Sx Informant: patient Onset/Context/Timing Onset: Days (2) Context: Gradual Onset Timing: Continuous Quality: Aching Location: Generalized Worsened by: - (Nothing) Relieved by: - (Nothing) Associated Symptoms Associated Symptoms: Positive for Nasal Congestion, Nausea, Vomiting, Shortness of Breath and Nonproductive cough; Negative for Headache, Sinus Pressure, Myalgias, Diarrhea, Chest Pain, Hemoptysis or Productive Cough Narrative Narrative: Patient presents with cough, nausea, and vomiting that has been getting worse over the past couple days. Patient states that she started with the cough and bodyaches. Patient states that yesterday she started having some nausea and vomiting. Patient states she has been unable to keep anything down. Patient denies any diarrhea. Patient denies any hematemesis or coffee-ground emesis. Patient admits to a nonproductive cough. Patient states nothing makes her symptoms better and nothing makes them worse. ROS ROS ED Constitutional Constitutional ED: Reports fever(s) and subjective; Denies chills Eyes Eyes: Denies blurry vision or change in vision ENT ENT ED: Reports rhinorrhea; Denies sore throat Cardiovascular Cardiovascular: Denies chest pain or palpitations Respiratory/Chest Respiratory/Chest: Reports cough and dyspnea Gastrointestinal Gastrointestinal: Reports nausea and vomiting Genitourinary Genitourinary ED: Denies dysuria or hematuria Musculoskeletal Musculoskeletal: Reports back pain; Denies neck pain Integumentary Denies abscess or rash Neurologic Neurologic: Denies headache(s) or weakness Allergic/Immunologic Allergic/Immunologic ED: Denies mouth swelling or urticaria PFSH [facility] Medical History Dysuria Breast pain Mitral valve prolapse Anxiety Vitamin deficiency History of pneumonia Arthritis Seasonal allergies Neuropathy Chronic bronchitis Hypothyroidism Back pain Thyroid disease Asthma Knee pain Diarrhea Migraines Hay fever Fatigue Anemia Stomach ulcer Shoulder pain SOB (shortness of breath) Weight loss Lung disease Home Medications ?Medication ?Instructions ?Recorded ?Last Taken ?Type albuterol sulfate 90 mcg/actuation 1 puff inhalation Q6H PRN Sob &/Or 04/12/17 12/04/19 History aerosol inhaler Wheezing lamotrigine 100 mg tablet 125 mg PO QHS 12/17/18 Unknown History (Lamictal) alprazolam 0.5 mg tablet 0.5 mg PO QHS 10/06/20 Unknown History montelukast 10 mg tablet 10 mg PO QHS 90 days #90 tabs 07/16/20 Unknown Rx levothyroxine 25 mcg tablet 25 mcg PO QHS #90 tabs 07/19/20 Unknown Rx fluticasone furoate 200 1 inh inhalation .prn PRN 11/06/21 Unknown History mcg-vilanterol 25 mcg/dose inhalation powder (Breo Ellipta) fluconazole 150 mg tablet 150 mg PO Q3D 3 doses #3 tabs 05/24/23 Unknown Rx azithromycin 250 mg tablet 250 mg PO DAILY #4 TABLETS 04/12/24 Unknown Rx Allergy/AdvReac Type Severity Reaction Status Date / Time tuberculin,PPD,multi-puncture Allergy Severe swelling Verified 04/12/24 15:43 Sulfa (Sulfonamide Allergy Rash Verified 04/12/24 15:43 Antibiotics) codeine AdvReac Other Verified 04/12/24 15:43 nifedipine (From Procardia) AdvReac PT UNSURE Verified 04/12/24 15:43 OF REACTION Family History Mother Breast cancer COPD (chronic obstructive pulmonary disease) Thyroid disorder Arthritis Asthma Osteoporosis Father Heart disease Diabetes Arthritis Hypertension CVA (cerebral vascular accident) Surgical History History of lumpectomy of left breast Hx of colonoscopy History of tonsillectomy H/O removal of cyst History of sinus surgery H/O tubal ligation Hx of breast reduction, elective History of cholecystectomy Social History household members: spouse housing: house Smoking Status: Never smoker alcohol intake: never substance use type: does not use caffeine: Yes what type of physical activity do you participate in: none seatbelt use: always do you feel safe at home: Yes EXAM Physical Exam Const Vital Signs: 04/12/24 15:43 04/12/24 15:55 Temperature 100.4 F H Temperature Source Oral Pulse Rate 132 H Respiratory Rate 18 Respiratory Effort Normal Non-Labored Respiratory Pattern Normal Blood Pressure 119/59 L Blood Pressure Mean 79 Pulse Ox 94 Oxygen Delivery Method Room Air Positive well nourished and well developed General Appearance ED: well developed and NAD HEENT Reports dry mucous membranes normocephalic and atraumatic Mouth ED: Yes dry mucous membranes Mouth: dry mucous membranes Neck supple and no JVD Resp normal respiratory effort Auscultation: diminished lung sounds bilateral Cardio Rate: tachycardic Rhythm: regular rhythm GI non-tender and non-distended Palpation: soft Extremity normal to inspection and full ROM General Extremety ED: Negative for tenderness Neuro oriented x3, CN's II-XII intact bilaterally and no sensory deficits noted Sensorium / Orientation: alert Motor Exam: strength 5/5 throughout Psych mental status grossly normal MDM MDM MDM Narrative Medical decision making narrative: Differential diagnosis includes pneumonia, bronchitis, viral illness, gastroenteritis, electrolyte abnormality, dehydration, and anxiety. Chest x-ray will be obtained to assess for pneumonia and bronchitis. CBC will be obtained to assess for leukocytosis and anemia. Comprehensive metabolic profile will be obtained to assess for hepatic function, renal function, and electrolyte abnormality. Lab Data Attestation: I reviewed the patient's lab results. Lab results narrative: CBC was reviewed. There is leukocytosis of 18.1. There are 86% neutrophils. The remainder is within normal limits. Comprehensive metabolic profile was reviewed and was within normal limits. COVID-19 PCR was reviewed and was negative. Influenza PCR was reviewed and was positive for influenza A and negative for influenza B. RSV PCR was reviewed and was negative. Labs: Laboratory Results - last 24 hr 04/12/24 16:30 WBC 18.1 H RBC 4.39 Hgb 13.2 Hct 40.2 MCV 91.6 MCH 30.1 MCHC 32.8 RDW Std Deviation 43.3 RDW Coeff of Anna 12.9 Plt Count 258 MPV 10.3 Immature Gran % (Auto) 0.700 Neut % (Auto) 86.0 H Lymph % (Auto) 4.8 L [place] % (Auto) 2.5 Eos % (Auto) 5.7 H Baso % (Auto) 0.3 Absolute Neuts (auto) 15.6 H Absolute Lymphs (auto) 0.87 Nucleated RBC % 0 Differential Comment SCANNED Sodium 138 Potassium 3.7 Chloride 106 Carbon Dioxide 26.0 Anion Gap 6 BUN 14 Creatinine 0.86 Estim Creat Clear Calc 64.16 Est GFR (MDRD) Af Amer 87 Est GFR (MDRD) Non-Af 72 BUN/Creatinine Ratio 16.3 Glucose 121 H Calcium 9.3 Total Bilirubin 0.90 AST 34 ALT 41 Alkaline Phosphatase 85 Total Protein 6.9 Albumin 3.2 Globulin 3.7 Albumin/Globulin Ratio 0.9 Radiography Chest X-Ray - ED: 2 View, Read by ED Physician, Read by Radiologist and Left Infiltrate Diagnostic Testing: Clinical Impression(s) from Imaging Studies Chest X-Ray 04/12/24 16:35 IMPRESSION: Mild left basilar airspace opacities concerning for pneumonia. Reading Location: [facility] PA and lateral chest x-ray is obtained. There are 2 views. On my independent interpretation, there is a left basilar infiltrate. There is no other acute abnormality. Bony thorax is normal. There is no cardiomegaly. Radiologist also interpreted the x-ray and agrees. Treatment and Re-Evaluation Narrative: Patient was given IV fluids and Zofran. Patient was feeling better on reevaluation. Patient was given a dose of Zithromax. Patient was advised of her findings. Patient was advised that the pneumonia could be from a bacterial etiology as well as influenza A. Patient was given a prescription for Zithromax to cover for bacterial pneumonia. Patient was instructed to drink plenty of fluids. Patient was instructed to take Tylenol or ibuprofen as needed for any fevers. Patient was instructed to follow-up with her primary care physician in 5 to 7 days. Patient understood and was agreeable with plan. All questions were answered. Discharge Plan Triage Chief Complaint: Cold Sx ED Provider: Harrison Blanco Dx/Rx/DC Orders Clinical Impression: Pneumonia, Influenza A Instructions: ED Influenza (Adult), ED Pneumonia (Adult) Prescriptions: New azithromycin 250 mg tablet 250 mg PO DAILY Qty: 4 0RF No Action albuterol sulfate 90 mcg/actuation HFA aerosol inhaler 1 puff INHALATION Q6H PRN (Reason: Sob &/Or Wheezing) lamotrigine [Lamictal] 100 mg tablet 125 mg PO QHS levothyroxine 25 mcg tablet 25 mcg PO QHS Qty: 90 1RF Rx Instructions: Take 25 mcg on 5 days and 50 mcg on 2 days weekly. montelukast 10 mg tablet 10 mg PO QHS 90 Days Qty: 90 3RF fluticasone furoate-vilanterol [Breo Ellipta] 200-25 mcg/dose blister with device 1 inh inhalation .prn PRN fluconazole 150 mg tablet 150 mg PO Q3D Qty: 3 0RF alprazolam 0.5 MG tablet 0.5 mg PO QHS Primary Care Provider: Taj Fortune Referrals: Taj Fortune DO [Primary Care Provider] - 5-7 Days Print Language: Slovak Disposition Disposition: Home, Self Care
[2024-04-12] MEDS: 0.9% Normal Saline (1000mL) 1,000 ML 1000 ML IV (16:27)
[2024-04-12] MEDS: Ondansetron 4 MG/2 ML Vial IV (16:27)
--- NOTE | 2024-04-12 16:35 | RAD_ITS ---
PROCEDURE: Chest radiographs REASON FOR EXAM: Cough TECHNIQUE: Two views of the chest COMPARISON: 05/01/2022 FINDINGS: Cardiomediastinal silhouette is within normal limits. Mild patchy airspace opacities at the left lung base. Lungs are otherwise clear. No pleural effusion or sizable pneumothorax. RAD/Chest PA and Lateral IMPRESSION: Mild left basilar airspace opacities concerning for pneumonia. Reading Location: [facility]
[2024-04-12 16:55] LABS: ALB/GLOB Ratio 0.9 RATIO (0.9-2.4); AST(SGOT) 34 U/L (15-37); Alanine Aminotransfer ALT/SGPT 41 U/L (13-56); Albumin, Serum 3.2 g/dL (3.2-5.0); Alkaline Phosphatase 85 U/L (45-117); Anion Gap 6 (5-15); BUN 14 mg/dL (7-18); BUN/Creat Ratio 16.3 RATIO (10-20); Calcium,Total 9.3 mg/dL (8.5-10.1); Chloride 106 mmol/L (98-107); Creatinine, Serum 0.86 mg/dL (0.55-1.02); EST Glomerular Filtration Rate 72 mL/min (>60); Est Glom Filt Rate - Afr Amer 87 mL/min (>60); Estimated Creatinine Clearance 64.16 ml/min; Globulin 3.7 g/dL (2.2-4.2); Glucose 121 mg/dL (74-106); Potassium 3.7 mmol/L (3.5-5.1); Protein, Total 6.9 g/dL (6.4-8.2); Sodium Level 138 mmol/L (136-145)
[2024-04-12] MEDS: Acetaminophen 500 MG Tablet 1000 MG PO (17:01)
[2024-04-12 17:15] LABS: Absolute Lymphocyte Count 0.87 X10^3/uL (0.83-4.51); Absolute Neutrophil Count 15.6 X10^3/uL (2.0-7.7); Basophil# 0.05 X10^3/uL; Basophil% 0.3 % (0-1); Eosinophil# 1.03 X10^3/uL; Eosinophils% 5.7 % (0-5); Hematocrit 40.2 % (37-47); Hemoglobin 13.2 g/dL (12.0-15.0); Lymphocyte # 0.87 X10^3/ul (0.83-4.51); Lymphocyte % 4.8 % (19-41); Mean Corp Hgb Conc 32.8 g/dL (32-36); Mean Corpuscular Hgb 30.1 pg (27.0-32.0); Mean Corpuscular Volume 91.6 fL (81-99); Mean Platelet Vol. 10.3 fl (6.2-12.0); Monocyte# 0.46 X10^3/uL; Monocyte% 2.5 % (0-10); NRBC Flagged by Analyzer 0 % (0-5); POSITIVE MORPHOLOGY YES; Platelet Count 258 K/mm3 (150-450); RBC Distribution Width CV 12.9 % (11.6-14.6); RBC Distribution Width SD 43.3 fl (35.1-43.9); Red Blood Count 4.39 M/mm3 (4.2-5.4); White Blood Count 18.1 K/mm3 (4.4-11.0)
[2024-04-12 17:16] LABS: Differential Indicated SCAN CRITERIA MET
[2024-04-12 17:18] LABS: Differential Comment SCANNED
[2024-04-12] MEDS: Azithromycin 250 MG Tablet 500 MG PO (17:30)
[2024-04-12 17:47] VITALS: BP 122/64; PULSE 105; RESP 18; TEMP 37.4; O2SAT 94
== END 2024-04-12 17:50 | disposition home or self-care (01) ==
PROVIDERS: Emergency Provider Emergency Medicine; PCP Student in an Organized Health Care Education/Training Program; Referring Provider Emergency Medicine; Visit Provider Emergency Medicine
DX: J10.00 Influenza due to other identified influenza virus with unspecified type of pneumonia (principal); R11.2 Nausea with vomiting, unspecified; J45.909 Unspecified asthma, uncomplicated
CPT/HCPCS: 71046; 80053; 85025; 87631; 96361; 96374; 99283; A4216; J2405

== ENCOUNTER → 2024-06-15 | Outpatient (CLI) | payer OTHER, SELFPAY ==
--- NOTE | 2024-06-15 15:29 | BI_ITS ---
EXAM: SCRN MAMM (CAD)W/JUAN BILAT DATE: 06/15/2024 CLINICAL HISTORY: F, Age 58 y/o , SCREENING Patient has had a left breast lumpectomy for a benign process. Patient's mother was diagnosed with breast cancer. BREAST CANCER RISK ASSESSMENT: Has not been calculated. TECHNIQUE: Bilateral screening digital breast tomosynthesis with 2D and 3D images. Computer aided detection. COMPARISON: Prior exam(s) dated 06/22/2022 and 12/14/2021. FINDINGS: TISSUE DENSITY: The breast tissue is composed of scattered area of fibroglandular density. Bilateral Breast Mammographic Findings: There are no suspicious masses, suspicious cluster of microcalcifications, architectural distortion or secondary signs of malignancy identified in either breast. Stable nodular masslike densities are seen in both breasts. Benign round microcalcifications are seen in both breast. Benign-appearing macrocalcifications are seen in the left breast. Surgical clips are seen in the left breast axillary region. This area appears stable. BI/SCRN MAMM (CAD)W/JUAN BILAT IMPRESSION: OVERALL FINAL ASSESSMENT: BIRADS 2 BENIGN FINDING RECOMMENDATION: Routine annual follow-up in 1 Year A letter with findings and recommendations will be mailed to the patient. Reading Location: [id number]
== END | disposition home or self-care (01) ==
LOC: OPBI 15:28
PROVIDERS: PCP Student in an Organized Health Care Education/Training Program; Referring Provider Student in an Organized Health Care Education/Training Program; Visit Provider Student in an Organized Health Care Education/Training Program
DX: Z12.31 Encounter for screening mammogram for malignant neoplasm of breast (principal); Z80.3 Family history of malignant neoplasm of breast
CPT/HCPCS: 77063; 77067

== ENCOUNTER → 2024-07-01 | Outpatient (CLI) | payer OTHER, SELFPAY ==
--- NOTE | 2024-07-01 16:50 | RAD_ITS ---
PROCEDURE: ABDOMEN SINGLE VIEW 07/01/2024 REASON FOR EXAM: BOWEL ISSUES, RECTOCELE TECHNIQUE: Single view abdomen. 2 total images to include the entire abdomen and pelvis FINDINGS: Image labeled as day 3 Sitz marker. Only 2 radiopaque markers are currently identified at the area of the sigmoid. No significant appearing fecal load identified. No gaseous distention of bowel. The visualized lung bases are clear. The visualized osseous structures appear within limits. Bilateral pelvic fallopian tube clips seen. RAD/Abdomen Single View IMPRESSION: Only 2 radiopaque markers are currently identified at the area of the sigmoid. No significant appearing fecal load identified. No gaseous distention of bowel. Reading Location: [id number]
== END | disposition home or self-care (01) ==
LOC: RAD 16:45
PROVIDERS: PCP Student in an Organized Health Care Education/Training Program
DX: K59.00 Constipation, unspecified (principal); N81.6 Rectocele
CPT/HCPCS: 74018

== ENCOUNTER → 2024-07-03 | Outpatient (CLI) | payer OTHER, SELFPAY ==
--- NOTE | 2024-07-03 16:30 | RAD_ITS ---
PROCEDURE: ABDOMEN SINGLE VIEW 07/03/2024 REASON FOR EXAM: BOWEL ISSUES, RECTOCELE TECHNIQUE: Single view abdomen. Two views to include the entire abdomen and pelvis COMPARISON: 07/01/2024 FINDINGS: Day 5 Sitz markers. No markers are currently seen. No significant appearing fecal load. No gaseous distention of bowel. Bilateral pelvic fallopian tube clips. RAD/Abdomen Single View IMPRESSION: Day 5 Sitz markers. No markers are currently seen. Reading Location: [id number]
== END | disposition home or self-care (01) ==
LOC: RAD 16:22
PROVIDERS: PCP Student in an Organized Health Care Education/Training Program
DX: N81.6 Rectocele (principal); K59.00 Constipation, unspecified
CPT/HCPCS: 74018

== ENCOUNTER → 2024-08-12 | Outpatient (CLI) | payer OTHER, SELFPAY ==
--- NOTE | 2024-08-12 10:49 | NM_ITS ---
PROCEDURE: GASTRIC EMPTYING STUDY 08/12/2024 REASON FOR EXAM: INCREASED NAUSEA COMPARISON: None TECHNIQUE: The patient ingested a standard meal of oatmeal and sulfur colloid and water. There was no vomiting postprandially. Anterior and posterior planar images of the upper abdomen were obtained for 1 minute immediately following the meal at 1h, 2h and 4h if more than 10% of the activity persisted within the stomach. Regions of interest were drawn, and a geometric mean was used to calculate a [id number]. RADIOPHARMACEUTICAL: Sulfur colon DOSE 1.1mCi FINDINGS: Percent activity remaining in stomach: 1 hour 59 % (normal 37-90%) NM/Gastric Emptying Study IMPRESSION: Normal gastric emptying examination. Reading Location: [facility]
== END | disposition home or self-care (01) ==
LOC: NM 10:47
PROVIDERS: PCP Student in an Organized Health Care Education/Training Program
DX: R11.0 Nausea (principal); R12 Heartburn
CPT/HCPCS: 78264; A9541

== ENCOUNTER 2024-08-20 10:27 | Day surgery (SDC) | payer OTHER, SELFPAY ==
--- NOTE | 2024-08-19 15:50 | PAT.ANESEVAL ---
Pre-Assessment Diagnosis/Proposed Procedure Planned Operative Procedure(s): EGD, COLONOSCOPY Anesthesia History Anesthesia History - pinion and wheel truer: Anesthesia History - pinion and wheel truer Hx Hospitalization No 08/19/24 08:39 Any Problems With Anesthesia Yes: NAUSEA, VERY SENSITIVE 08/19/24 08:39 TO MEDICATIONS Cholinesterase deficiency No 08/19/24 08:39 You/Your Family Experience No 08/19/24 08:39 fever (hyperthermia) with Relationship Recent Exposure to Contagious No 06/20/20 14:45 Disease Does patient have nerve No 08/19/24 08:39 stimulator Patient instructed to have device shut off --Does patient have Pacemaker or ICD? When Was Last Pacemaker Check QUESTION #4 FULL TEXT: You/Your Family Experience fever (hyperthermia) with Anesthesia Last Oral Intake Last Oral intake: Last Oral Intake NPO since Meds taken in AM with sips of water? Meds patient instructed to take am of surgery PONV PONV - pinion and wheel truer: PONV - pinion and wheel truer Female Yes 08/19/24 08:39 HX of Motion Sickness No 08/19/24 08:39 HX of N/V After Surgery Yes 08/19/24 08:39 Non-Smoker Yes 08/19/24 08:39 Duration of Surgery greater No 08/19/24 08:39 than 60 minutes Number of Risk Factors 3 08/19/24 08:39 PONV Score Moderate Risk 08/19/24 08:39 Height & Weight Height & Weight: Anesthesia: Height & Weight Height 5 ft 5 in 04/12/24 15:43 Respiratory Assessment Respiratory Assessment - pinion and wheel truer: Respiratory Tract Infection Hx - pinion and wheel truer Hx Respiratory Tract Infection No 08/19/24 08:39 STOP Sleep Apnea STOP Sleep Apnea - pinion and wheel truer: STOP Sleep Apnea - pinion and wheel truer Hx Hypertension No 08/19/24 08:39 Hx Sleep Apnea Yes 08/19/24 08:39 CPAP Yes 08/19/24 08:39 BIPAP No 08/19/24 08:39 Do you snore loudly (louder than talking or can be heard Do you often feel tired/ fatigued/ sleepy during daytime? Has anyone observed you stop breathing during sleep? STOP Results Positive 08/19/24 08:39 QUESTION #5 FULL TEXT : Do you snore loudly (louder than talking or can be heard through closed doors)? 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 Specify any problems Hx of Preganancy in last 3 No 08/19/24 08:39 Months Nurse Filling Out Transfusion [facility] 08/19/24 08:39 & Questions: Date: 08/19/24 08/19/24 08:39 Time: 08:51 08/19/24 08:39 Patient unable to answer at this time (ie. confused, unrespo /Reproduction History /Reproductive History - pinion and wheel truer: /Reproductive Hx- pinion and wheel truer Hx Now No 08/19/24 08:39 Gestational Age (in weeks): EDC: Hx Hx Para Hx Section SAB No 08/19/24 08:39 [facility] Medical History (Updated 08/19/24 @ 11:28 by Savannah Wen) Wears dentures Wears glasses Post-menopausal Depression Bladder disease Easy bruising History of ulceration Gastric reflux Non-smoker CPAP (continuous positive airway pressure) dependence Sleep apnea History of echocardiogram History of stress test Cardiology follow-up encounter History of irregular heartbeat Early satiety Weight loss, non-intentional Dysuria Breast pain Mitral valve prolapse Anxiety Vitamin deficiency History of pneumonia Arthritis Seasonal allergies Neuropathy Chronic bronchitis Hypothyroidism Back pain Thyroid disease Asthma Knee pain Diarrhea Migraines Hay fever Fatigue Anemia Stomach ulcer Shoulder pain SOB (shortness of breath) Weight loss Lung disease Home Medications ?Medication ?Instructions ?Recorded ?Last Taken ?Type albuterol sulfate 90 mcg/actuation 1 puff inhalation Q6H PRN Sob &/Or 04/12/17 12/04/19 History aerosol inhaler Wheezing lamotrigine 100 mg tablet 125 mg PO QHS 12/17/18 Unknown History (Lamictal) alprazolam 0.5 mg tablet 0.25 mg PO QHS 11/24/19 Unknown History montelukast 10 mg tablet 10 mg PO QHS 90 days #90 tabs 07/16/20 Unknown Rx fluticasone furoate 200 1 inh inhalation QHS 11/06/21 Unknown History mcg-vilanterol 25 mcg/dose inhalation powder (Breo Ellipta) azelastine 137 mcg (0.1 %) nasal 1 spray intranasal BID PRN 06/16/24 Unknown History spray ALLERGIES bupropion HCl 150 mg 24 hr tablet, 150 mg PO QAM 06/16/24 Unknown History extended release trazodone 50 mg tablet 25 mg PO QHS 06/16/24 Unknown History famotidine 40 mg tablet 40 mg PO QHS #30 tabs 06/22/24 Unknown Rx ondansetron HCl 4 mg tablet 4 mg PO Q8H PRN nausea and 07/24/24 Unknown Rx vomiting #20 tabs pantoprazole 40 mg tablet,delayed 40 mg PO BID #60 tabs 07/27/24 Unknown Rx release bisacodyl 5 mg tablet,delayed 5 mg PO ONCE #4 tabs 08/19/24 Unknown Rx release clotrimazole 10 mg leticia 10 mg PO 5X/DAY 08/19/24 Unknown History guaifenesin 1,200 mg tablet, 1,200 mg PO QHS 08/19/24 Unknown History extended release 12 hr (Mucinex) levothyroxine 25 mcg tablet 25 mcg PO QHS THYROID 08/19/24 Unknown History polyethylene glycol 3350 17 238 g PO ONCE #238 grams 08/19/24 Unknown Rx gram/dose oral powder (Miralax) Allergy/AdvReac Type Severity Reaction Status Date / Time tuberculin,PPD,multi-puncture Allergy Severe swelling Verified 08/19/24 08:30 Sulfa (Sulfonamide Allergy Rash Verified 08/19/24 08:30 Antibiotics) codeine AdvReac Other Verified 08/19/24 08:30 nifedipine (From Procardia) AdvReac PT UNSURE Verified 08/19/24 08:30 OF REACTION Family History Mother Breast cancer COPD (chronic obstructive pulmonary disease) Thyroid disorder Arthritis Asthma Osteoporosis Father Heart disease Diabetes Arthritis Hypertension CVA (cerebral vascular accident) Surgical History History of lumpectomy of left breast Hx of colonoscopy History of tonsillectomy H/O removal of cyst History of sinus surgery H/O tubal ligation Hx of breast reduction, elective History of cholecystectomy Social History household members: spouse housing: house Smoking Status: Never smoker alcohol intake: never substance use type: does not use caffeine: Yes what type of physical activity do you participate in: none seatbelt use: always do you feel safe at home: Yes Audit: Pertinent Findings Pertinent Findings EKG Perinent findings: July 28, 2024. Sinus rhythm. Normal EKG. Stress test pertinent findings: January 05, 2021. Patient achieved 7 METS. Negative for ischemia. No exercise-induced chest pain. Echo (EF%) pertinent findings: November 15, 2020. EF of 50 to 55%. No aortic stenosis. Consult pertinent findings: August 11, 2024. 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 1. Hypotension-BPs running on lower side. Discussed hydration and salt intake. Patient is continue to monitor and report back. 2. Fatigue?stable. 3. Mitral valve prolapse?stable. Last echo showed normal mitral valve with trivial MR. 4. Raynaud's disease?stable-continue to monitor. 5. Sleep apnea-patient has CPAP. Working on compliance. Recommendation Anesthesia Recommendation Anesthesia recommendation: OPTIMIZED for anesthesia
[2024-08-20] VITALS (8 sets, daily range): BP systolic 98–105; BP diastolic 49–59; PULSE 68–85; RESP 16–18; TEMP 36.5–36.7; O2SAT 99–100; BMI 20.6
[2024-08-20] MEDS: Lactated Ringers 1,000 ML 15 ML IV (11:08)
--- NOTE | 2024-08-20 11:15 | PCM.PRE.AN2 ---
ASA Classification* ASA Classification ASA Classification: 3 Assessment & Plan Anesthesia* Anesthesia Assessment Anesthesia Assessment: Discussed sedation and/or anesthesia options, risks, benefits, and alternatives with patient/parents/legal guardian/POA. Questions invited. The patient/parents/legal guardian/POA seems to understand and agrees to proceed with anesthesia plan. Reviewed the physical assessment, medical history, allergy history and patient home medications list prior to surgery/procedure/anesthetic and documented any changes. Performed airway and anesthesia risk assessments. Procedural Plan Add'l anesthesia plan details: METS<4, gets SOB with 1 flight of stairs Anesthesia Type Anesthesia Type: MAC (Has had PONV in the past even with colonoscopy, will order scop patch to be placed in preop, discussed precautions about scop patch with the patient. Discussed MAC with GA as backup) History Source History Obtained from:: Patient and Chart Anesthesia Focused Assessment* Temperature: 97.7 F Pulse Rate: 81 Blood Pressure: 102/49 Respiratory Rate: 18 Pulse Ox: 100 Oxygen Delivery Method: Room Air Airway Assessment Mouth opens: >3 cm Mallampati Score: I Teeth Condition: Dentures, Full, Lower, Missing and Upper Labs Anesthesia Preop lab: CBC WBC 18.1 K/mm3 (4.4-11.0) H 04/12/24 16:30 04/12/24 RBC 4.39 M/mm3 (4.2-5.4) 04/12/24 16:30 04/12/24 Hgb 13.2 g/dL (12.0-15.0) 04/12/24 16:30 04/12/24 Hct 40.2 % (37-47) 04/12/24 16:30 04/12/24 Plt Count 258 K/mm3 (150-450) 04/12/24 16:30 04/12/24 CHEMISTRY Potassium 3.7 mmol/L (3.5-5.1) 04/12/24 16:30 04/12/24 Sodium 138 mmol/L (136-145) 04/12/24 16:30 04/12/24 BUN 14 mg/dL (7-18) 04/12/24 16:30 04/12/24 Creatinine 0.86 mg/dL (0.55-1.02) 04/12/24 16:30 04/12/24 Glucose 121 mg/dL (74-106) H 04/12/24 16:30 04/12/24 TSH 4.21 uIU/mL (0.358-3.74) H 12/31/22 09:16 12/31/22 COAG Pre-Assessment Diagnosis/Proposed Procedure Planned Operative Procedure(s): EGD, COLONOSCOPY Anesthesia History 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 When Was Last Pacemaker Check QUESTION #4 FULL TEXT: You/Your Family Experience fever (hyperthermia) with Anesthesia Last Oral Intake Last Oral intake: Last Oral Intake NPO since 08:00 08/20/24 10:58 Meds taken in AM with sips of Yes 08/20/24 10:58 water? Meds patient instructed to take am of surgery PONV PONV - aquaculture farm manager: PONV - aquaculture farm manager Female Yes 08/19/24 08:39 HX of Motion Sickness No 08/19/24 08:39 HX of N/V After Surgery Yes 08/19/24 08:39 Non-Smoker Yes 08/19/24 08:39 Duration of Surgery greater No 08/19/24 08:39 than 60 minutes Number of Risk Factors 3 08/19/24 08:39 PONV Score Moderate Risk 08/19/24 08:39 Height & Weight Height & Weight: Anesthesia: Height & Weight Height 5 ft 5 in 08/20/24 10:58 Weight: 56.2 kg 08/20/24 10:58 Body Mass Index (BMI) 20.6 08/20/24 10:58 Respiratory Assessment Respiratory Assessment - aquaculture farm manager: Respiratory Tract Infection Hx - aquaculture farm manager Hx Respiratory Tract Infection No 08/19/24 08:39 STOP Sleep Apnea STOP Sleep Apnea - aquaculture farm manager: STOP Sleep Apnea - aquaculture farm manager Hx Hypertension No 08/19/24 08:39 Hx Sleep Apnea Yes 08/19/24 08:39 CPAP Yes 08/19/24 08:39 BIPAP No 08/19/24 08:39 Do you snore loudly (louder than talking or can be heard Do you often feel tired/ fatigued/ sleepy during daytime? Has anyone observed you stop breathing during sleep? STOP Results Positive 08/19/24 08:39 QUESTION #5 FULL TEXT : Do you snore loudly (louder than talking or can be heard through closed doors)? 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 Specify any problems Hx of Preganancy in last 3 No 08/19/24 08:39 Months Nurse Filling Out Transfusion [facility] 08/19/24 08:39 & Questions: Date: 08/19/24 08/19/24 08:39 Time: 08:51 08/19/24 08:39 Patient unable to answer at this time (ie. confused, unrespo /Reproduction History /Reproductive History - aquaculture farm manager: /Reproductive Hx- aquaculture farm manager Hx Now No 08/19/24 08:39 Gestational Age (in weeks): EDC: Hx Hx Para Hx Section SAB No 08/19/24 08:39 Active Medications Active Medications: Current Medications Generic Name Dose Route Start Last Admin Trade Name Freq PRN Reason Stop Dose Admin Lactated Ringer's 1,000 mls @ 15 mls/hr 08/20/24 10:45 08/20/24 11:08 IV 15 mls/hr .Q48H EVELIA Administration PFSH Medical History Wears dentures Wears glasses Post-menopausal Depression Bladder disease Easy bruising History of ulceration Gastric reflux Non-smoker CPAP (continuous positive airway pressure) dependence Sleep apnea History of echocardiogram History of stress test Cardiology follow-up encounter History of irregular heartbeat Early satiety Weight loss, non-intentional Dysuria Breast pain Mitral valve prolapse Anxiety Vitamin deficiency History of pneumonia Arthritis Seasonal allergies Neuropathy Chronic bronchitis Hypothyroidism Back pain Thyroid disease Asthma Knee pain Diarrhea Migraines Hay fever Fatigue Anemia Stomach ulcer Shoulder pain SOB (shortness of breath) Weight loss Lung disease Home Medications ?Medication ?Instructions ?Recorded ?Last Taken ?Type albuterol sulfate 90 mcg/actuation 1 puff inhalation Q6H PRN Sob &/Or 04/12/17 08/20/24 History aerosol inhaler Wheezing lamotrigine 100 mg tablet 125 mg PO QHS 12/17/18 08/19/24 History (Lamictal) alprazolam 0.5 mg tablet 0.25 mg PO QHS 11/24/19 08/19/24 History montelukast 10 mg tablet 10 mg PO QHS 90 days #90 tabs 07/16/20 08/19/24 Rx fluticasone furoate 200 1 inh inhalation QHS 11/06/21 08/19/24 History mcg-vilanterol 25 mcg/dose inhalation powder (Breo Ellipta) azelastine 137 mcg (0.1 %) nasal 1 spray intranasal BID PRN 06/16/24 Unknown History spray ALLERGIES bupropion HCl 150 mg 24 hr tablet, 150 mg PO QAM 06/16/24 08/20/24 History extended release trazodone 50 mg tablet 25 mg PO QHS 06/16/24 08/19/24 History famotidine 40 mg tablet 40 mg PO QHS #30 tabs 06/22/24 08/19/24 Rx ondansetron HCl 4 mg tablet 4 mg PO Q8H PRN nausea and 07/24/24 Unknown Rx vomiting #20 tabs pantoprazole 40 mg tablet,delayed 40 mg PO BID #60 tabs 07/27/24 08/20/24 Rx release bisacodyl 5 mg tablet,delayed 5 mg PO ONCE #4 tabs 08/19/24 08/19/24 Rx release clotrimazole 10 mg leticia 10 mg PO 5X/DAY 08/19/24 08/19/24 History levothyroxine 25 mcg tablet 25 mcg PO QHS THYROID 08/19/24 08/19/24 History polyethylene glycol 3350 17 238 g PO ONCE #238 grams 08/19/24 08/19/24 Rx gram/dose oral powder (Miralax) Allergy/AdvReac Type Severity Reaction Status Date / Time tuberculin,PPD,multi-puncture Allergy Severe swelling Verified 08/20/24 10:56 Sulfa (Sulfonamide Allergy Rash Verified 08/20/24 10:56 Antibiotics) codeine AdvReac Other Verified 08/20/24 10:56 nifedipine (From Procardia) AdvReac PT UNSURE Verified 08/20/24 10:56 OF REACTION Family History Mother Breast cancer COPD (chronic obstructive pulmonary disease) Thyroid disorder Arthritis Asthma Osteoporosis Father Heart disease Diabetes Arthritis Hypertension CVA (cerebral vascular accident) Surgical History History of lumpectomy of left breast Hx of colonoscopy History of tonsillectomy H/O removal of cyst History of sinus surgery H/O tubal ligation Hx of breast reduction, elective History of cholecystectomy Social History household members: spouse housing: house Smoking Status: Never smoker alcohol intake: never substance use type: does not use caffeine: Yes what type of physical activity do you participate in: none seatbelt use: always do you feel safe at home: Yes Review of Systems (Anesthesia) ROS Narrative System reviewed and no additional complaints, except as documented. Physical Exam Const alert, oriented x3 and average body habitus General Appearance: anxious HEENT Teeth and Gingiva: dentures and edentulous Resp normal respiratory effort, normal air movement and clear to auscultation bilaterally Cardio regular rate and regular rhythm Back/Spine normal ROM Neuro oriented x3 and moves all extremities
--- NOTE | 2024-08-20 11:30 | EGD_PTH ---
PATIENT: TREVOR LEE LOC: EN U#:[id number] AGE/SX: 59/F ROOM: RE08/20/[address]: Dr. Joe Sparks DO : 1965 BED: DIS: 08/20/2024 SPEC #: [id number] RECD: 08/20/24 14:58 STATUS: EVERT REVanesa #: [id number] LURDES: 08/20/24 11:[address]: Joe Sparks DEPT: SURGICAL PATHOLOGY RECD BY: Jin Clemente ENTERED: 08/20/24 16:02 SP TYPE: EGD BIOPSY ESTEFANI DR: Dr. Taj Fortune DO Tissues: A - Esophagus, NOS Procedures: Surgery Specimen Level IV HEADER OPERATION: Colonoscopy, EGD, biopsy, dilation PRE-OP DIAGNOSIS: Heartburn, nausea, screening for colorectal cancer TISSUE SUBMITTED: -Distal esophagus biopsy MICROSCOPIC DIAGNOSIS A. Distal esophagus, biopsy: - Squamous and columnar mucosa with no specific pathologic change. - Negative for goblet cell metaplasia. - Negative for dysplasia. MICROSCOPIC DESCRIPTION Slides are reviewed. GROSS DESCRIPTION A. Received in fixative is one container labeled with the patient's name and designated Distal esophagus biopsy. The specimen consists of two irregular fragments of light wolf soft tissue that in aggregate measure 0.3 and 0.6 cm. The specimen is totally submitted in one cassette. Ronna 08/20/2024 CPT:82551
--- NOTE | 2024-08-20 11:35 | PCM.HP.STD ---
HPI - General General Date of Admission: 08/20/24 Date of Service: 09/23/24 Chief Complaint: GERD and colorectal screening HPI Narrative TREVOR LEE, is a 59 F who presents today for upper lower endoscopy regarding GERD and need for screening colonoscopy. 5 OV established with [facility] for reports of alternating bowels, nausea, and heartburn following an intestinal flu in February. She states that she's lost 12 pounds and has actively been trying to regain some of that back for a month unsuccessfully. She reports daily heartburn with nausea and is eating Tums like TicTacs. After chewing the Tums, she reports excessive belching. She's had her gallbladder removed 8years ago, has a h/o stress-induced bleeding gastric ulcer. She has a known rectocele, bladder and uterine prolapse. She denies difficulty chewing and swallowing, cough, throat clearing, reflux, emesis, abdominal bloating, excessive flatus, hematochezia and melena. She denies food sensitivities and change in water source. 07.27.24 OV She presents to review symptoms and medication regimen. She reports some improvement to her heartburn, but has breakthrough nausea. She states that she took a short vacation and went camping, stress reduced and symptoms improved except for sleeping flat and having reflux wake her. She is finally scheduled for a GET on 08.13.24 and will keep her scheduled bidirectional endoscopy appointment in August. She does eat spicy foods or milk products. Her BMs have been OK. [facility] Medical History Wears dentures Wears glasses Post-menopausal Depression Bladder disease Easy bruising History of ulceration Gastric reflux Non-smoker CPAP (continuous positive airway pressure) dependence Sleep apnea History of echocardiogram History of stress test Cardiology follow-up encounter History of irregular heartbeat Early satiety Weight loss, non-intentional Dysuria Breast pain Mitral valve prolapse Anxiety Vitamin deficiency History of pneumonia Arthritis Seasonal allergies Neuropathy Chronic bronchitis Hypothyroidism Back pain Thyroid disease Asthma Knee pain Diarrhea Migraines Hay fever Fatigue Anemia Stomach ulcer Shoulder pain SOB (shortness of breath) Weight loss Lung disease Home Medications ?Medication ?Instructions ?Recorded ?Last Taken ?Type albuterol sulfate 90 mcg/actuation 1 puff inhalation Q6H PRN Sob &/Or 04/12/17 08/20/24 History aerosol inhaler Wheezing lamotrigine 100 mg tablet 125 mg PO QHS 12/17/18 08/19/24 History (Lamictal) alprazolam 0.5 mg tablet 0.25 mg PO QHS 11/24/19 08/19/24 History montelukast 10 mg tablet 10 mg PO QHS 90 days #90 tabs 07/16/20 08/19/24 Rx fluticasone furoate 200 1 inh inhalation QHS 11/06/21 08/19/24 History mcg-vilanterol 25 mcg/dose inhalation powder (Breo Ellipta) azelastine 137 mcg (0.1 %) nasal 1 spray intranasal BID PRN 06/16/24 Unknown History spray ALLERGIES bupropion HCl 150 mg 24 hr tablet, 150 mg PO QAM 06/16/24 08/20/24 History extended release trazodone 50 mg tablet 25 mg PO QHS 06/16/24 08/19/24 History famotidine 40 mg tablet 40 mg PO QHS #30 tabs 06/22/24 08/19/24 Rx ondansetron HCl 4 mg tablet 4 mg PO Q8H PRN nausea and 07/24/24 Unknown Rx vomiting #20 tabs pantoprazole 40 mg tablet,delayed 40 mg PO BID #60 tabs 07/27/24 08/20/24 Rx release bisacodyl 5 mg tablet,delayed 5 mg PO ONCE #4 tabs 08/19/24 08/19/24 Rx release clotrimazole 10 mg leticia 10 mg PO 5X/DAY 08/19/24 08/19/24 History levothyroxine 25 mcg tablet 25 mcg PO QHS THYROID 08/19/24 08/19/24 History polyethylene glycol 3350 17 238 g PO ONCE #238 grams 08/19/24 08/19/24 Rx gram/dose oral powder (Miralax) Allergy/AdvReac Type Severity Reaction Status Date / Time tuberculin,PPD,multi-puncture Allergy Severe swelling Verified 08/20/24 10:56 Sulfa (Sulfonamide Allergy Rash Verified 08/20/24 10:56 Antibiotics) codeine AdvReac Other Verified 08/20/24 10:56 nifedipine (From Procardia) AdvReac PT UNSURE Verified 08/20/24 10:56 OF REACTION Family History Mother Breast cancer COPD (chronic obstructive pulmonary disease) Thyroid disorder Arthritis Asthma Osteoporosis Father Heart disease Diabetes Arthritis Hypertension CVA (cerebral vascular accident) Surgical History History of lumpectomy of left breast Hx of colonoscopy History of tonsillectomy H/O removal of cyst History of sinus surgery H/O tubal ligation Hx of breast reduction, elective History of cholecystectomy Social History household members: spouse housing: house Smoking Status: Never smoker alcohol intake: never substance use type: does not use caffeine: Yes what type of physical activity do you participate in: none seatbelt use: always do you feel safe at home: Yes ROS Constitutional Constitutional: Denies fatigue, fever(s), poor appetite, weight gain or weight loss Gastrointestinal Gastrointestinal: Denies belching, bloating, change in bowel habits, change in stool character, chewing difficulty, coffee ground emesis, constipation, cramping, diarrhea, dyspepsia, dysphagia, early satiety, excessive flatus, fecal incontinence, heartburn, hematemesis, hematochezia, hemorrhoids, loose stools, melena, nausea, odynophagia, rectal bleeding, tenesmus, vomiting or weight changes Vital Signs Vital Signs Vital Signs: 08/20/24 10:58 08/20/24 10:58 08/20/24 11:15 Temperature 97.7 F L 97.7 F L Temperature Source Temporal Pulse Rate 81 81 Respiratory Rate 18 18 Respiratory Pattern Normal Blood Pressure 102/49 L 102/49 L Blood Pressure Mean 66 Blood Pressure Source Monitor Blood Pressure Position Semi-Fowlers Blood Pressure Location Right Arm Pulse Ox 100 100 Oxygen Delivery Method Room Air Room Air Weight Weight: 123 lb 14.397 oz Body Mass Index (BMI) 20.6 Physical Exam Const alert, oriented x3, no apparent distress and healthy appearing General Appearance: cooperative GI normal to inspection, nondistended, normoactive bowel sounds, soft to palpation, non-tender and non-distended Percussion: normal to percussion Rectal Exam: deferred Assessment & Plan Assessment/Plan (1) Heartburn: (2) Nausea: (3) Screening for colorectal cancer: PLAN: Assessment and Plan Assessment and Plan (1) Nausea: Status: Acute (2) Heartburn: Status: Acute Medications: Changed From pantoprazole 40 mg PO DAILY 30 tabs 1RF To pantoprazole 40 mg PO BID 60 tabs 1RF Plan TREVOR LEE, is a 59 F who presents to the office today for FU. increase pantoprazole 40mg PO to twice daily, 30minutes before breakfast and dinner continue famotidine QHS office FU after endoscopies
--- NOTE | 2024-08-20 12:29 | OP.CCLET_ITS ---
08/20/2024 Taj Fortune Do Re : Upper GI endoscopy procedure for Kathi Newman Dear Tong This procedure was performed on August. My impressions and recommendations are as follows: Impressions : - LA Grade A reflux esophagitis with no bleeding. Biopsied. - Moderate Schatzki ring. Dilated. - No gross lesions in the entire stomach. - No gross lesions in the entire examined duodenum. Recommendations : - Discharge patient to home. - Resume previous diet. - Continue present medications. My findings are described in the full procedure note, which is enclosed. If I can be of further assistance, please feel free to contact me at . Sincerely, Joe Sparks, 08/20/2024 12:29:24 PM This report has been signed electronically.
--- NOTE | 2024-08-20 12:29 | OP.EGD_ITS ---
Patient Name: Kathi Newman Procedure Date: 08/20/2024 11:47 AM Date of : 1965 Age: 59 Procedure: Upper GI endoscopy Indications: Epigastric abdominal pain, Dysphagia, Heartburn Providers: Joe Sparks DO Referring MD: Taj Fortune Do Medicines: Monitored Anesthesia Care Patient Profile: This is a 59 year old female. Refer to note in patient chart for documentation of history and physical. Patient has symptoms of chronic abdominal cramping and chronic dysphagia. Complications: No immediate complications. Procedure: Pre-Anesthesia Assessment: - Prior to the procedure, a History and Physical was performed, and patient medications and allergies were reviewed. The patient is competent. The risks and benefits of the procedure and the sedation options and risks were discussed with the patient. All questions were answered and informed consent was obtained. Patient identification and proposed procedure were verified by the physician in the pre-procedure area. Mental Status Examination: alert and oriented. Airway Examination: normal oropharyngeal airway and neck mobility. Respiratory Examination: clear to auscultation. CV Examination: normal. Prophylactic Antibiotics: The patient does not require prophylactic antibiotics. Prior Anticoagulants: The patient has taken no anticoagulant or antiplatelet agents except for NSAID medication. ASA Grade Assessment: II - A patient with mild systemic disease. After reviewing the risks and benefits, the patient was deemed in satisfactory condition to undergo the procedure. The anesthesia plan was to use monitored anesthesia care (MAC). Immediately prior to administration of medications, the patient was re-assessed for adequacy to receive sedatives. The heart rate, respiratory rate, oxygen saturations, blood pressure, adequacy of pulmonary ventilation, and response to care were monitored throughout the procedure. The physical status of the patient was re-assessed after the procedure. After obtaining informed consent, the endoscope was passed under direct vision. Throughout the procedure, the patient's blood pressure, pulse, and oxygen saturations were monitored continuously. The Colonoscope was introduced through the mouth, and advanced to the fourth part of the duodenum. Small bowel enteroscopy was deemed necessary. The upper GI endoscopy was accomplished without difficulty. The patient tolerated the procedure well. Scope In: 11:54:06 AM Scope Out: 11:59:07 AM Total Procedure Duration Time 0 hours 5 minutes 1 second Findings: LA Grade A (one or more mucosal breaks less than 5 mm, not extending between tops of 2 mucosal folds) esophagitis with no bleeding was found 38 to 40 cm from the incisors. Biopsies were taken with a cold forceps for histology. Verification of patient identification for the specimen was done. Estimated blood loss was minimal. A moderate Schatzki ring was found at the gastroesophageal junction. A guidewire was placed and the scope was withdrawn. Dilation was performed with a Savary dilator with no resistance at 54 Fr. The dilation site was examined and showed moderate improvement in luminal narrowing. No gross lesions were noted in the entire examined stomach. No gross lesions were noted in the entire examined duodenum. Impression: - LA Grade A reflux esophagitis with no bleeding. Biopsied. - Moderate Schatzki ring. Dilated. - No gross lesions in the entire stomach. - No gross lesions in the entire examined duodenum. Recommendation: - Discharge patient to home. - Resume previous diet. - Continue present medications. Procedure Code(s): --- Professional --- 33233, Esophagogastroduodenoscopy, flexible, transoral; with insertion of guide wire followed by passage of dilator(s) through esophagus over guide wire 86702, 59,51, Small intestinal endoscopy, enteroscopy beyond second portion of duodenum, not including ileum; with biopsy, single or multiple CPT copyright 2021 [employer]. All rights reserved. The codes documented in this report are preliminary and upon pulling unit floorhand review may be revised to meet current compliance requirements. Joe Sparks DO 08/20/2024 12:29:24 PM This report has been signed electronically. Number of Addenda: 0 Note Initiated On: 08/20/2024 11:47 AM
--- NOTE | 2024-08-20 12:32 | OP.COLON_ITS ---
Patient Name: Kathi Newman Procedure Date: 08/20/2024 11:59 AM Date of : 1965 Age: 59 Procedure: Colonoscopy Indications: Screening for colorectal malignant neoplasm Providers: Joe Sparks DO Referring MD: Taj Fortune Do Medicines: Monitored Anesthesia Care Patient Profile: This is a 59 year old female. Refer to note in patient chart for documentation of history and physical. Patient has symptoms of chronic abdominal cramping and chronic dysphagia. Last Colonoscopy: more than 10 years ago. Complications: No immediate complications. Procedure: Pre-Anesthesia Assessment: - Prior to the procedure, a History and Physical was performed, and patient medications and allergies were reviewed. The patient is competent. The risks and benefits of the procedure and the sedation options and risks were discussed with the patient. All questions were answered and informed consent was obtained. Patient identification and proposed procedure were verified by the physician in the pre-procedure area. Mental Status Examination: alert and oriented. Airway Examination: normal oropharyngeal airway and neck mobility. Respiratory Examination: clear to auscultation. CV Examination: normal. Prophylactic Antibiotics: The patient does not require prophylactic antibiotics. Prior Anticoagulants: The patient has taken no anticoagulant or antiplatelet agents except for NSAID medication. ASA Grade Assessment: II - A patient with mild systemic disease. After reviewing the risks and benefits, the patient was deemed in satisfactory condition to undergo the procedure. The anesthesia plan was to use monitored anesthesia care (MAC). Immediately prior to administration of medications, the patient was re-assessed for adequacy to receive sedatives. The heart rate, respiratory rate, oxygen saturations, blood pressure, adequacy of pulmonary ventilation, and response to care were monitored throughout the procedure. The physical status of the patient was re-assessed after the procedure. After I obtained informed consent, the scope was passed under direct vision. Throughout the procedure, the patient's blood pressure, pulse, and oxygen saturations were monitored continuously. The Colonoscope was introduced through the anus and advanced to the cecum, identified by appendiceal orifice and ileocecal valve. The colonoscopy was performed without difficulty. The patient tolerated the procedure well. The quality of the bowel preparation was adequate. The ileocecal valve, appendiceal orifice, and rectum were photographed. Scope In: 12:00:42 PM Scope Withdrawal Time 0 hours 8 minutes 31 seconds Scope Out: 12:16:18 PM Total Procedure Duration Time 0 hours 15 minutes 36 seconds Findings: The perianal and digital rectal examinations were normal. The entire examined colon appeared normal on direct and retroflexion views. A few small-mouthed diverticula were found in the recto-sigmoid colon. Impression: - The entire examined colon is normal on direct and retroflexion views. - Diverticulosis in the recto-sigmoid colon. - No specimens collected. Recommendation: - Discharge patient to home. - Resume previous diet. - Continue present medications. - Repeat colonoscopy in 10 years for screening purposes. Procedure Code(s): --- Professional --- 42603, Colonoscopy, flexible; diagnostic, including collection of specimen(s) by brushing or washing, when performed (separate procedure) CPT copyright 2021 [employer]. All rights reserved. The codes documented in this report are preliminary and upon deburr technician review may be revised to meet current compliance requirements. Joe Sparks DO 08/20/2024 12:31:27 PM This report has been signed electronically. Number of Addenda: 0 Note Initiated On: 08/20/2024 11:59 AM
--- NOTE | 2024-08-20 12:32 | OP.CCLET_ITS ---
08/20/2024 Taj Fortune Do Re : Colonoscopy procedure for Kathi Newman Dear Tong This procedure was performed on August. My impressions and recommendations are as follows: Impressions : - The entire examined colon is normal on direct and retroflexion views. - Diverticulosis in the recto-sigmoid colon. - No specimens collected. Recommendations : - Discharge patient to home. - Resume previous diet. - Continue present medications. - Repeat colonoscopy in 10 years for screening purposes. My findings are described in the full procedure note, which is enclosed. If I can be of further assistance, please feel free to contact me at . Sincerely, Joe Sparks, 08/20/2024 12:31:27 PM This report has been signed electronically.
--- NOTE | 2024-08-20 14:12 | PCM.POST.ANE ---
Anesthesia: Postop Eval I Current Vital Signs Temperature: 97.7 F Pulse Rate: 68 Blood Pressure: 98/59 Respiratory Rate: 16 Pulse Ox: 100 Oxygen Delivery Method: Room Air Assessment Airway patent: Yes Spontaneous unlabored respirations: Yes Mental status: Awake and Calm nausea: No Vomiting: No Anesthesia Complication: No Fluid Hydration Crystalloid volume administer (ml): 750 Total IV fluid infused: 750 Progress Note Anesthesia document: Postop Eval 1 completed: Yes
--- NOTE | 2024-08-20 14:13 | PCM.POSTANE2 ---
Anesthesia Postop Eval I Sum Postop Eval Completion status Anesthesia document: Postop Eval 1 completed: Yes Anesthesia Postop Eval I Summary Anesthesia Postop Eval I Summary: Anesthesia Postop Eval I: Assessment Summary Airway patent Yes 08/20/24 14:13 Spontaneous unlabored Yes 08/20/24 14:13 respirations Mental status Awake,Calm 08/20/24 14:13 nausea No 08/20/24 14:13 Vomiting No 08/20/24 14:13 Anesthesia Postop Eval I: Fluid Summary Crystalloid volume administer 750 08/20/24 14:13 (ml) Colloids volume administered ( ml) Blood Product volume administered (ml) Total IV fluid infused 750 08/20/24 14:13 Anesthesia Postop Eval I: Summary Notes Anesthesia Complication No 08/20/24 14:13 Anesthesia Complication Comment: Post-operative progress note Anesthesia: Postop Eval II Evaluation Mental status: Awake and Calm Pain Level: 1 nausea: No Vomiting: No Complications Anesthesia Complication: No
== END 2024-08-20 13:11 | disposition home or self-care (01) ==
LOC: EN 10:29 → AC 10:30
PROVIDERS: PCP Student in an Organized Health Care Education/Training Program; Referring Provider Student in an Organized Health Care Education/Training Program; Visit Provider Internal Medicine Gastroenterology
PROC: 0DJD8ZZ Inspection of Lower Intestinal Tract, Via Natural or Artificial Opening Endoscopic (ICD-10-PCS; CPT 45378; principal; 2024-08-20 11:25)
DX: Z12.11 Encounter for screening for malignant neoplasm of colon (principal); K21.00 Gastro-esophageal reflux disease with esophagitis, without bleeding; J45.909 Unspecified asthma, uncomplicated; K57.30 Diverticulosis of large intestine without perforation or abscess without bleeding; K22.2 Esophageal obstruction; Z79.899 Other long term (current) drug therapy; Z79.51 Long term (current) use of inhaled steroids; Z79.890 Hormone replacement therapy; E03.9 Hypothyroidism, unspecified; K22.89 Other specified disease of esophagus
CPT/HCPCS: 43239; 45378; 43248; 88305; C1769; J2405

== ENCOUNTER → 2024-10-22 | Outpatient (CLI) | payer OTHER, SELFPAY ==
[2024-10-25 09:08] LABS: HPV APTIMA, High Risk Negative (Negative)
== END | disposition home or self-care (01) ==
LOC: LABSPEC 11:29
PROVIDERS: PCP Student in an Organized Health Care Education/Training Program; Visit Provider Nurse Practitioner Family
DX: Z12.4 Encounter for screening for malignant neoplasm of cervix (principal)
CPT/HCPCS: 87624; 88175; G0145